=== PATIENT | female | born 1985 | race Caucasian/White ===

== ENCOUNTER 2016-09-12 10:39 | Emergency (ER) | payer MEDICAID ==
[2016-09-12 11:02] VITALS: BP 113/71
[2016-09-12] MEDS ORDERED: IPRATROPIUM/ALBUTEROL 0.5-2.5 MG/3 ML AMPUL NEB ONE (11:40)
[2016-09-12] MEDS ORDERED: LIDOCAINE 5% (700 MG) TRANSDERMAL ADH..PATCH TP ONE (11:41)
--- NOTE | 2016-09-12 11:43 | ER Document Report ---
HPI - HPI Patient complains to provider of: upper back pain Onset: Other - 2 weeks Quality of pain: Achy, Sharp Pain Level: 4 Context: Patient complains of upper thoracic back pain for the past 2 weeks. Patient denies any back injury, fever, cough, abdominal pain or chest pain. Patient denies any nausea, vomiting or diarrhea. Patient denies any urinary symptoms. Associated Symptoms: Other. denies: Chest pain, Chills, Nonproductive cough, Productive cough, Fever, Headache Exacerbated by: Denies Relieved by: Denies - Upper back pain Similar symptoms previously: No Recently seen / treated by doctor: No - ROS ROS below otherwise negative: Yes Systems Reviewed and Negative: Yes All other systems reviewed and negative - CONSTITUTIONAL Constitutional: DENIES: Fever, Chills - NEURO Neurology: DENIES: Headache, Weakness - CARDIOVASCULAR Cardiovascular: DENIES: Chest pain - RESPIRATORY Respiratory: DENIES: Trouble Breathing, Coughing - GASTROINTESTINAL Gastrointestinal: DENIES: Abdominal Pain, Nausea, Patient vomiting, Diarrhea - REPRODUCTIVE Reproductive: DENIES: : - MUSCULOSKELETAL Musculoskeletal: REPORTS: Back Pain. DENIES: Extremity pain, Neck Pain - DERM Skin Color: Normal Skin Problems: None Past Medical History - General Information source: Patient - Social History Smoking Status: Current Every Day Smoker - One pack per day Frequency of alcohol use: None Drug Abuse: None Occupation: none Family History: Reviewed & Not Pertinent Patient has suicidal ideation: No Patient has homicidal ideation: No Renal/ Medical History: Denies: Hx Peritoneal Dialysis Psychiatric Medical History: Reports: Hx Anxiety Past Surgical History: Reports: Hx Cholecystectomy - Immunizations Hx Diphtheria, Pertussis, Tetanus Vaccination: No - refused Vertical Provider Document - CONSTITUTIONAL Agree With Documented VS: Yes Exam Limitations: No Limitations General Appearance: WD/WN, No Apparent Distress - INFECTION CONTROL TRAVEL OUTSIDE OF THE [place] IN LAST 30 DAYS: No - HEENT HEENT: Atraumatic, Normal ENT Exam, Normocephalic - NECK Neck: Normal Inspection, Supple - RESPIRATORY Respiratory: No Respiratory Distress, Chest Non-Tender, Wheezing - Wheezing bilateral lower lobes O2 Sat by Pulse Oximetry: 100 - CARDIOVASCULAR Cardiovascular: Regular Rate, Regular Rhythm, No Murmur - GI/ABDOMEN Gastrointestinal: Abdomen Soft, Abdomen Non-Tender - BACK Back: Abnormal Inspection - Thoracic midline tenderness T4-C7 area with paraspinal tenderness. negative: CVA Tenderness-Right, CVA Tenderness-Left - MUSCULOSKELETAL/EXTREMETIES Musculoskeletal/Extremeties: CHELSEY MIKE - NEURO Level of Consciousness: Awake, Alert, Appropriate Motor/Sensory: No Motor Deficit - DERM Integumentary: Warm, Dry, No Rash Course - Re-evaluation Re-evalutation: 09/12/16 11:42 Patient refuses any steroid medication to help with her wheezing symptoms. Patient states that her left had lung cancer with a similar presentation to her symptoms and she is requesting a chest x-ray be performed today. 09/12/16 12:41 Patient with decreased wheezing bilaterally after treatment. Discussed planning care with patient, patient requesting to know what her pain medication prescription will be. Patient advised that no narcotic will be given as she currently takes benzodiazepines regularly 4 times a day to treat her anxiety symptoms. Patient advised she will be getting nonnarcotic pain medication. Patient states that none of these medications are going to work she has a high pain tolerance. Although patient has not taken any of these medications to treat her current pain symptoms at this time. Discussed worsening signs or symptoms that patient should return immediately for. Patient advised to see her primary doctor for follow-up. - Vital Signs Vital signs: Temp Pulse Resp BP Pulse Ox 98.7 F 76 16 113/71 100 09/12/16 11:02 09/12/16 11:01 09/12/16 11:01 09/12/16 11:01 09/12/16 11:01 - Diagnostic Test Radiology reviewed: Reports reviewed Discharge - Discharge Clinical Impression: Upper back pain, Wheezing Condition: Stable Disposition: HOME, SELF-CARE Instructions: Stop Smoking ([facility]) Additional Instructions: Return immediately for any new or worsening symptoms Followup with your primary care provider, call tomorrow to make a followup appointment Apply topical lidocaine patch to painful area [id number] as directed BACK PAIN: Three out of every four people will have an episode of disabling back pain during their lifetime. Most commonly the pain is due to straining of the muscles and ligaments in the low back. Usual treatment includes: (1) Rest on a firm surface. Avoid lying on your stomach. (2) Ice pack the painful area. After a few days, gentle heat may be used intermittently to relax the area, or ice packs can be continued. (3) Medication may be needed -- muscle relaxers and antiinflammatory medicines are commonly used. (4) As the back improves, exercises are prescribed to strengthen the back and abdominal muscles. Your doctor will advise you on the proper care for your back at each stage in your recovery. You may be better in a few days -- or healing may take several weeks. If new symptoms of a "herniated disc" (radiation of pain, numbness, or tingling down the back of the leg or weakness in the leg) occur, you should be re-examined. Further testing may be necessary. MUSCLE RELAXERS: Muscle relaxing medications are usually prescribed for acute muscle spasm or injury to the neck and back. They are often combined with antiinflammatory pain medication for increased relief. You may stop the muscle relaxer when the pain and stiffness have improved. Start the medication again if spasms recur. Muscle relaxers may cause drowsiness, especially with the first dose. Do not operate machinery or drive while under the effects of the medication. Most muscle relaxers last up to 24 hours. Do not combine the medication with alcohol. ICE PACKS: Apply ice packs frequently against the painful area. Many different schedules are recommended, such as "20 minutes on, 20 minutes off" or "one hour ice, two hours rest." If you need to work, you may need to go longer between ice treatments. You should plan to have the area ice packed AT LEAST one fourth of the time. The ice should be applied over the wrap, tape, or splint, or over a layer of cloth -- not directly against the skin. Some ice bags have a built-in cloth and can be put directly on the skin. WARM PACKS: After approximately two days, apply gentle heat (such as a heating pad or hot water bottle) for about 20 to 30 minutes about every two hours -- at least four times daily. Warmth and elevation will help you make a more rapid recovery , and will ease the pain considerably. Do not use HOT heat, and never apply heat for longer than 30 minutes. The continuous heat can invisibly damage skin and muscles -- even when no burn is seen on the surface. Damaged muscles can make you MORE sore. UPPER RESPIRATORY ILLNESS: You have a viral infection of the respiratory passages -- a "cold." This common infection causes nasal congestion, drainage, and often sore throat and cough. It is highly contagious. The disease usually lasts about 10 to 14 days. There is no "cure" for the viral infection -- it must run its course. If there is a complication, such as bacterial infection in the nose, sinuses, middle ear, or bronchial tubes, antibiotics may be required. The antibiotics won't affect the virus. Drink plenty of fluids. A humidifier may help. An expectorant medication or decongestant may make you more comfortable. Use acetaminophen or ibuprofen for fever or aches. See the doctor if fever persists over two days, if there is any significant worsening of your symptoms, or if you simply fail to improve as expected. BRONCHOSPASM: You have tightness in the bronchial tubes, called bronchospasm. This often occurs with bronchial infections. Allergies, inhaled chemicals, and polluted or cold air can also provoke bronchospasm. It's more likely in patients with asthma in the family. Emergency treatment of bronchospasm may include adrenaline shots or bronchodilator aerosol. You may feel lightheaded and have a rapid pulse for an hour or two. Rest and get plenty of fluids. At home, we'll treat you with a bronchodilator inhaler. Antibiotics and corticosteroids may be required for some patients. Until you recover, avoid chemical fumes, dusts, pollens, and exercising in very cold or dry air. If you smoke, stop now!! If you develop a fever, increased wheezing, chest pain, or severe shortness of breath, you should contact the doctor immediately. INHALED BRONCHODILATORS: You have received a treatment of and/or prescription for an inhaled bronchodilator -- a medication which stimulates the airways in the lung to dilate. This improves the flow of air in asthma, bronchitis, and emphysema. These medicines have some similarity to adrenaline, and can cause similar side effects: shakiness, racing heart, and a sense of nervousness. These side effects decrease with time. Contact your doctor if these side effects are severe. Do not over-use the medicine. Too-frequent use of the inhaler may make it ineffective. Call your doctor if the inhaler is not controlling your symptoms at the prescribed doses. USE OF ACETAMINOPHEN (Tylenol): Acetaminophen may be taken for pain relief or fever control. It's much safer than aspirin, offering a wider range of "safe" dosages. It is safe during . Some brand names are Tylenol, Panadol, Datril, Anacin 3, Tempra, and Liquiprin. Acetaminophen can be repeated every four hours. The following are maximum recommended dosages: >89 pounds or adults 650 mg to 900 mg Acetaminophen can be repeated every four hours. Maximum dose not to exceed 4000 mg a day. SMOKING: If you smoke, you should stop smoking. The tar and chemicals in cigarette smoke are harmful. Smoking has been shown to cause: emphysema chronic bronchitis lung cancer mouth and throat cancer stomach and pancreas cancer premature aging defects In addition, smoking increases ear and lung infections in children of smokers. FOLLOW-UP CARE: If you have been referred to a physician for follow-up care, call the physician s office for an appointment as you were instructed or within the next two days. If you experience worsening or a significant change in your symptoms, notify the physician immediately or return to the Emergency Department at any time for re-evaluation. Prescriptions: Albuterol Sulfate [Ventolin Hfa] 2 puff IH Q4HP PRN #17 gm PRN Reason: Cyclobenzaprine HCl [Flexeril 10 Mg Tablet] 10 mg PO TID #15 tablet Naproxen [Naprosyn 250 Nmg Tablet] 1 tab PO BID #14 tablet Referrals: SHANTEL HER PA-C [Primary Care Provider] - 09/15/16
== END 2016-09-12 12:55 | disposition home or self-care (01) ==
LOC: ER 10:39
DX: M54.6 Pain in thoracic spine (principal); R06.2 Wheezing; F17.210 Nicotine dependence, cigarettes, uncomplicated; Z90.49 Acquired absence of other specified parts of digestive tract; Z85.118 Personal history of other malignant neoplasm of bronchus and lung
CPT/HCPCS: 94640; 99283; 71020; J3490; J7620

== ENCOUNTER 2016-11-22 15:22 | Emergency (ER) | payer MEDICAID ==
[2016-11-22] MEDS ORDERED: KETOROLAC TROMETHAMINE 60 MG/2 ML SDV IM ONE (16:32)
--- NOTE | 2016-11-22 16:35 | ER Document Report ---
ED Medical Screen (RME) - General Chief Complaint: Abdominal Pain Stated Complaint: ABDOMINAL PAIN Time Seen by Provider: 11/22/16 16:32 Mode of Arrival: Ambulatory Information source: Patient TRAVEL OUTSIDE OF THE [place] IN LAST 30 DAYS: No - HPI Patient complains to provider of: abdominal pain Onset: Yesterday - pt on second round of " pill" (took first dose yesterday) with crampy abdominal pain starting earlier today. Had small amount of vag bleeding. Was told she would have some discomfort but motrin not helping. - Related Data Allergies/Adverse Reactions: No Known Allergies Allergy (Verified 11/22/16 15:29) Past Medical History Renal/ Medical History: Denies: Hx Peritoneal Dialysis Psychiatric Medical History: Reports: Hx Anxiety, Hx Depression - & anxiety Past Surgical History: Reports: Hx Cholecystectomy - Immunizations Hx Diphtheria, Pertussis, Tetanus Vaccination: No - refused Physical Exam - Vital signs Vitals: Temp Pulse Resp BP Pulse Ox 98.9 F 80 16 127/89 H 99 11/22/16 15:29 11/22/16 15:29 11/22/16 15:29 11/22/16 15:29 11/22/16 15:29 Course - Vital Signs Vital signs: Temp Pulse Resp BP Pulse Ox 98.9 F 80 16 127/89 H 99 11/22/16 15:29 11/22/16 15:29 11/22/16 15:29 11/22/16 15:29 11/22/16 15:29
[2016-11-22 17:02] LABS: ABSOLUTE BASOPHILS # (AUTO) 0.1 10^3/uL (0.0-0.2); ABSOLUTE EOSINOPHILS # (AUTO) 0.4 10^3/uL (0.0-0.6); ABSOLUTE LYMPHOCYTES (AUTO) 3.3 10^3/uL (0.5-4.7); ABSOLUTE MONOCYTES (AUTO) 0.9 10^3/uL (0.1-1.4); ABSOLUTE NEUT (AUTO) 5.3 10^3/uL (1.7-8.2); BASOPHILS % (AUTO) 0.7 % (0-2); EOSINOPHILS % (AUTO) 3.5 % (0-6); HEMATOCRIT 38.2 % (36.0-47.0); HEMOGLOBIN 12.7 g/dL (12.0-15.5); HGB HCT DIFFERENCE -0.1; LYMPHOCYTES % (AUTO) 32.7 % (13-45); MEAN CORPUSCULAR HEMOGLOBIN 31.2 pg (27.0-33.4); MEAN CORPUSCULAR HGB CONC 33.3 g/dL (32.0-36.0); MEAN CORPUSCULAR VOLUME 94 fl (80-97); MONOCYTES % (AUTO) 9.4 % (3-13); RED BLOOD COUNT 4.07 10^6/uL (3.72-5.28); RED CELL DISTRIBUTION WIDTH 13.9 % (11.5-14.0); SEGMENTED NEUTROPHILS % (AUTO) 53.7 % (42-78)
[2016-11-22 17:04] LABS: APPEARANCE,URINE CLEAR; BILIRUBIN,URINE NEGATIVE (NEGATIVE); GLUCOSE, URINE NEGATIVE (NEGATIVE); KETONES,URINE NEGATIVE (NEGATIVE); LEUKOCYTE ESTERASE,URINE NEGATIVE (NEGATIVE); NITRITE,URINE NEGATIVE (NEGATIVE); PROTEIN,URINE NEGATIVE (NEGATIVE); URINE SPECIFIC GRAVITY 1.013; UROBILINOGEN,URINE NEGATIVE mg/dL (<2.0)
[2016-11-22] MEDS ORDERED: OXYCODONE HCL IR 5 MG TABLET PO ONE (17:06)
--- NOTE | 2016-11-22 17:09 | ER Document Report ---
ED General - General Chief Complaint: Abdominal Pain Stated Complaint: ABDOMINAL PAIN Time Seen by Provider: 11/22/16 16:32 Mode of Arrival: Ambulatory Notes: 31-year-old female patient presents with lower abdominal cramping and spotting. This began today. She took around 1 of the pill yesterday around 2 this morning. Does not know what it was called. She took Motrin at home but that did not help. She was ordered for labs and Toradol at triage but refused Toradol because she does not want a needle. She denies fever chills it is mildly nauseous. TRAVEL OUTSIDE OF THE [place] IN LAST 30 DAYS: No - Related Data Allergies/Adverse Reactions: No Known Allergies Allergy (Verified 11/22/16 15:29) Past Medical History - General Information source: Patient - Social History Smoking Status: Current Every Day Smoker Chew tobacco use (# tins/day): No Frequency of alcohol use: None Drug Abuse: None Family History: Reviewed & Not Pertinent Patient has suicidal ideation: No Patient has homicidal ideation: No Renal/ Medical History: Denies: Hx Peritoneal Dialysis Psychiatric Medical History: Reports: Hx Anxiety, Hx Depression - & anxiety Past Surgical History: Reports: Hx Cholecystectomy - Immunizations Hx Diphtheria, Pertussis, Tetanus Vaccination: No - refused Review of Systems - Review of Systems Notes: REVIEW OF SYSTEMS GEN: Denies fever, chills, weight loss ENT: Denies sore throat, nasal discharge, ear pain EYES: Denies blurry vision, eye pain, discharge CV: Denies chest pain, palpitations, edema RESP: Denies cough, shortness of breath, wheezing GI: Cramping vaginal spotting MSK: Denies joint pain/swelling, edema, SKIN: Denies rash, skin lesions LYMPH: Denies swollen glands/lymph nodes NEURO: Denies headache, focal weakness or numbness, dizziness PSYCH: Denies depression, suicidal or homicidal ideation PHYSICAL EXAMINATION General: No acute distress, well-nourished Head: Atraumatic, normocephalic ENT: Mouth normal, oropharynx moist, no exudates or tonsillar enlargement Eyes: Conjunctiva normal, pupils equal, lids normal Neck: No JVD, supple, no guarding CVS: Normal rate, regular rhythm, no murmurs Resp: No resp distress, equal and normal breath sounds bilaterally GI: Nondistended, soft, no tenderness to palpation, no rebound or guarding Ext: No deformities, no edema, normal range of motion in upper and lower ext Back: No CVA or midline TTP Skin: No rash, warm Lymphatic: No lymphadeopathy noted Neuro: Awake, alert. Face symmetric. GCS 15. Physical Exam - Vital signs Vitals: Temp Pulse Resp BP Pulse Ox 98.9 F 80 16 127/89 H 99 11/22/16 15:29 11/22/16 15:29 11/22/16 15:29 11/22/16 15:29 11/22/16 15:29 Course - Re-evaluation Re-evalutation: 11/22/16 17:07 Patient presents with lower abdominal cramping and spotting after taking 2 rounds of oral pill. Her vitals are normal she is nontender and looks nontoxic. Labs will not change my management. Pelvic exam would not change my management. She will follow-up Thursday with the clinic, in the meantime she will have oxycodone. - Vital Signs Vital signs: Temp Pulse Resp BP Pulse Ox 98.9 F 80 16 127/89 H 99 11/22/16 15:29 11/22/16 15:29 11/22/16 15:29 11/22/16 15:29 11/22/16 15:29 - Laboratory Result Diagrams: 11/22/16 16:40 11/22/16 16:40 Laboratory results interpreted by me: 11/22/16 16:35 Urine Blood MODERATE H Discharge - Discharge Clinical Impression: Medical , Abdominal cramping affecting Condition: Good Disposition: HOME, SELF-CARE Additional Instructions: Your symptoms are within the normal limits for your condition, having taken a medical tablet. He should follow-up with the clinic on Thursday to check your progress and I will give you some pain medicine in the meantime. If he develops fever or and are not able to eat please return to the ER. Please continue taking the ibuprofen even though you do not think it is working, because it does help the cramping. Prescriptions: Oxycodone HCl/Acetaminophen [Percocet 5-325 mg Tablet] 1 - 2 tab PO Q4H PRN #15 tablet PRN Reason:
[2016-11-22 17:15] LABS: ALANINE AMINOTRANSFERASE 24 U/L (9-52); ALBUMIN 4.2 g/dL (3.5-5.0); ALKALINE PHOSPHATASE 48 U/L (38-126); ANION GAP 10 (5-19); ASPARTATE AMINO TRANSFERASE 22 U/L (14-36); BILIRUBIN,DIRECT 0.3 mg/dL (0.0-0.4); BILIRUBIN,TOTAL 0.3 mg/dL (0.2-1.3); BLOOD UREA NITROGEN 6 mg/dL (7-20); CALCIUM 9.2 mg/dL (8.4-10.2); CARBON DIOXIDE 24 mmol/L (22-30); CHLORIDE 105 mmol/L (98-107); GLUCOSE 88 mg/dL (75-110); POTASSIUM 4.1 mmol/L (3.6-5.0); SODIUM 139.1 mmol/L (137-145); TOTAL PROTEIN 7.3 g/dL (6.3-8.2)
[2016-11-22] MEDS ORDERED: ONDANSETRON 4 MG TAB.RAPDIS PO ONE (17:15)
[2016-11-22 17:29] VITALS: BP 111/66
== END 2016-11-22 17:29 | disposition home or self-care (01) ==
LOC: ER 15:22
DX: O04.89 (Induced) termination of pregnancy with other complications (principal); R10.30 Lower abdominal pain, unspecified; F17.200 Nicotine dependence, unspecified, uncomplicated
CPT/HCPCS: 99284; 36415; 85025; 81025; 80053; 81001; S0119; J3490

== ENCOUNTER 2016-12-21 10:40 | Emergency (ER) | payer MEDICAID ==
--- NOTE | 2016-12-21 11:00 | ER Document Report ---
ED Medical Screen (RME) - General Chief Complaint: Pelvic Pain Stated Complaint: ABDOMINAL PAIN Time Seen by Provider: 12/21/16 10:57 Mode of Arrival: Ambulatory Information source: Patient - pt is who took pill last month -- had U/S done recently at OB's office to confirm that sac was present but fetus was not viable. She is having severe abdominal pain today. TRAVEL OUTSIDE OF THE [place] IN LAST 30 DAYS: No - Related Data Allergies/Adverse Reactions: No Known Allergies Allergy (Verified 11/22/16 15:29) Past Medical History - Social History Chew tobacco use (# tins/day): No Frequency of alcohol use: Social Drug Abuse: None Renal/ Medical History: Denies: Hx Peritoneal Dialysis Psychiatric Medical History: Reports: Hx Anxiety, Hx Depression - & anxiety Past Surgical History: Reports: Hx Cholecystectomy - Immunizations Hx Diphtheria, Pertussis, Tetanus Vaccination: No - refused Physical Exam - Vital signs Vitals: Temp Pulse Resp BP Pulse Ox 98.6 F 104 H 16 125/74 100 12/21/16 10:46 12/21/16 10:46 12/21/16 10:46 12/21/16 10:46 12/21/16 10:46 Course - Vital Signs Vital signs: Temp Pulse Resp BP Pulse Ox 98.6 F 104 H 16 125/74 100 12/21/16 10:46 12/21/16 10:46 12/21/16 10:46 12/21/16 10:46 12/21/16 10:46
[2016-12-21 11:26] LABS: ABSOLUTE EOSINOPHILS # (AUTO) 0.1 10^3/uL (0.0-0.6); ABSOLUTE LYMPHOCYTES (AUTO) 2.2 10^3/uL (0.5-4.7); ABSOLUTE MONOCYTES (AUTO) 0.5 10^3/uL (0.1-1.4); ABSOLUTE NEUT (AUTO) 4.6 10^3/uL (1.7-8.2); BASOPHILS % (AUTO) 0.6 % (0-2); EOSINOPHILS % (AUTO) 1.9 % (0-6); HEMATOCRIT 34.1 % (36.0-47.0); HEMOGLOBIN 11.7 g/dL (12.0-15.5); LYMPHOCYTES % (AUTO) 29.3 % (13-45); MEAN CORPUSCULAR HEMOGLOBIN 32.1 pg (27.0-33.4); MEAN CORPUSCULAR HGB CONC 34.4 g/dL (32.0-36.0); MEAN CORPUSCULAR VOLUME 93 fl (80-97); MONOCYTES % (AUTO) 7.1 % (3-13); RED BLOOD COUNT 3.66 10^6/uL (3.72-5.28); RED CELL DISTRIBUTION WIDTH 13.1 % (11.5-14.0); SEGMENTED NEUTROPHILS % (AUTO) 61.1 % (42-78); WHITE BLOOD COUNT 7.5 10^3/uL (4.0-10.5)
[2016-12-21 11:29] LABS: APPEARANCE,URINE CLEAR; BILIRUBIN,URINE NEGATIVE (NEGATIVE); GLUCOSE, URINE NEGATIVE (NEGATIVE); KETONES,URINE NEGATIVE (NEGATIVE); LEUKOCYTE ESTERASE,URINE NEGATIVE (NEGATIVE); NITRITE,URINE NEGATIVE (NEGATIVE); PROTEIN,URINE NEGATIVE (NEGATIVE); URINE SPECIFIC GRAVITY 1.002; UROBILINOGEN,URINE NEGATIVE mg/dL (<2.0)
[2016-12-21 11:43] LABS: ALANINE AMINOTRANSFERASE 17 U/L (9-52); ALBUMIN 4.3 g/dL (3.5-5.0); ALKALINE PHOSPHATASE 47 U/L (38-126); ANION GAP 13 (5-19); ASPARTATE AMINO TRANSFERASE 14 U/L (14-36); BILIRUBIN,DIRECT 0.4 mg/dL (0.0-0.4); BILIRUBIN,TOTAL 0.4 mg/dL (0.2-1.3); BLOOD UREA NITROGEN 6 mg/dL (7-20); CALCIUM 9.3 mg/dL (8.4-10.2); CARBON DIOXIDE 21 mmol/L (22-30); CHLORIDE 105 mmol/L (98-107); CREATININE RESULT 0.62 mg/dL (0.52-1.25); GLUCOSE 80 mg/dL (75-110); POTASSIUM 3.9 mmol/L (3.6-5.0); SODIUM 138.5 mmol/L (137-145); TOTAL PROTEIN 6.7 g/dL (6.3-8.2)
--- NOTE | 2016-12-21 12:06 | ER Document Report ---
ED General - General Chief Complaint: Pelvic Pain Stated Complaint: ABDOMINAL PAIN Time Seen by Provider: 12/21/16 10:57 Mode of Arrival: Ambulatory Information source: Patient Notes: 31-year-old female who was given pill approximately 1 month ago and then a second round of medications a few days later presents with complaints of abdominal cramping. Pt ntes she had u/s last week that noted the gestational sac without an IUP pt denies any fevers or chills, admits to nausea without vomiting. TRAVEL OUTSIDE OF THE [place] IN LAST 30 DAYS: No - HPI Onset: Other Onset/Duration: Persistent Quality of pain: Cramping Severity: Mild Pain Level: 1 Associated symptoms: Nausea, Vomiting Exacerbated by: Denies Relieved by: Denies Similar symptoms previously: Yes Recently seen / treated by doctor: Yes - Related Data Allergies/Adverse Reactions: No Known Allergies Allergy (Verified 11/22/16 15:29) Past Medical History - General Information source: Patient - pt is who took pill last month -- had U/S done recently at OB's office to confirm that sac was present but fetus was not viable. She is having severe abdominal pain today. - Social History Smoking Status: Current Every Day Smoker Cigarette use (# per day): Yes Chew tobacco use (# tins/day): No Smoking Education Provided: No Frequency of alcohol use: Social Drug Abuse: None Family History: Reviewed & Not Pertinent Renal/ Medical History: Denies: Hx Peritoneal Dialysis Psychiatric Medical History: Reports: Hx Anxiety, Hx Depression - & anxiety Past Surgical History: Reports: Hx Cholecystectomy - Immunizations Hx Diphtheria, Pertussis, Tetanus Vaccination: No - refused Review of Systems - Review of Systems Notes: REVIEW OF SYSTEMS: CONSTITUTIONAL : Denies fever, chills, or sweats. Denies recent illness. EENT: Denies eye, ear, throat, or mouth pain or symptoms. Denies nasal or sinus congestion or discharge. Denies throat, tongue, or mouth swelling or difficulty swallowing. CARDIOVASCULAR: Denies chest pain. Denies palpitations or racing or irregular heart beat. Denies ankle edema. RESPIRATORY: Denies cough, cold, or chest congestion. Denies shortness of breath, difficulty breathing, or wheezing. GASTROINTESTINAL: admits to abd cramping GENITOURINARY: Denies difficulty urinating, painful urination, burning, frequency, blood in urine, or discharge. FEMALE GENITOURINARY: Denies vaginal bleeding, heavy or abnormal periods, irregular periods. Denies vaginal discharge or odor. MUSCULOSKELETAL: Denies back or neck pain or stiffness. Denies joint pain or swelling. SKIN: Denies rash, lesions or sores. HEMATOLOGIC : Denies easy bruising or bleeding. LYMPHATIC: Denies swollen, enlarged glands. NEUROLOGICAL: Denies confusion or altered mental status. Denies passing out or loss of consciousness. Denies dizziness or lightheadedness. Denies headache. Denies weakness or paralysis or loss of use of either side. Denies problems with gait or speech. Denies sensory loss, numbness, or tingling. Denies seizures. PSYCHIATRIC: Denies anxiety or stress. Denies depression, suicidal ideation, or homicidal ideation. ALL OTHER SYSTEMS REVIEWED AND NEGATIVE. PHYSICAL EXAMINATION: GENERAL: Well-appearing, well-nourished and in no acute distress. HEAD: Atraumatic, normocephalic. EYES: Pupils equal round and reactive to light, extraocular movements intact, conjunctiva are normal. ENT: Nares patent, oropharynx clear without exudates. Moist mucous membranes. NECK: Normal range of motion, supple without lymphadenopathy LUNGS: Breath sounds clear to auscultation bilaterally and equal. No wheezes rales or rhonchi. HEART: Regular rate and rhythm without murmurs ABDOMEN: Soft, nontender, nondistended abdomen. No guarding, no rebound. No masses appreciated. Female : deferred Musculoskeletal: Normal range of motion, no pitting or edema. No cyanosis. NEUROLOGICAL: Cranial nerves grossly intact. Normal speech, normal gait. Normal sensory, motor exams PSYCH: Normal mood, normal affect. SKIN: Warm, Dry, normal turgor, no rashes or lesions noted. Dictation was performed using [employer] voice recognition software Physical Exam - Vital signs Vitals: Temp Pulse Resp BP Pulse Ox 98.6 F 104 H 16 125/74 100 12/21/16 10:46 12/21/16 10:46 12/21/16 10:46 12/21/16 10:46 12/21/16 10:46 Course - Re-evaluation Re-evalutation: 12/21/16 13:[address] Welch, explained quant and imaging results, he requests patient follow up in the office tomorrow 12/21/16 13:44 Ultrasound is consistent with patient's knowledge at the current situation, given that [employer] requests she be seen in the office I will discharge her at this time with the understanding that if she is having fevers or chills that she must return immediately for further evaluation and care at this time is no sign of infection, her abdomen soft nontender and symptoms have been ongoing now for 1 month. I have instructed patient to please follow-up in the office so that they may actually treat her with possible D&C After performing a Medical Screening Examination, I estimate there is LOW risk for ACUTE APPENDICITIS, BOWEL OBSTRUCTION, ACUTE CHOLECYSTITIS, PERFORATED DIVERTICULITIS, INCARCERATED HERNIA, PANCREATITIS, PELVIC INFLAMMATORY DISEASE, PERFORATED ULCER, ECTOPIC , or TUBO-OVARIAN ABSCESS, thus I consider the discharge disposition reasonable. Also, there is no evidence or peritonitis , sepsis, or toxicity. I have reevaluated this patient multiple times and no significant life threatening changes are noted. The patient and I have discussed the diagnosis and risks, and we agree with discharging home with close follow-up with the understanding that symptoms and presentations can change. We also discussed returning to the Emergency Department immediately if new or worsening symptoms occur. We have discussed the symptoms which are most concerning (e.g., bloody stool, fever, changing or worsening pain, vomiting) that necessitate immediate return. - Vital Signs Vital signs: Temp Pulse Resp BP Pulse Ox 98.4 F 84 16 103/63 99 12/21/16 14:20 12/21/16 14:20 12/21/16 14:20 12/21/16 14:20 12/21/16 14:20 - Laboratory Result Diagrams: 12/21/16 11:00 12/21/16 11:00 Laboratory results interpreted by me: 12/21/16 12/21/16 11:00 11:00 RBC 3.66 L Hgb 11.7 L Hct 34.1 L Carbon Dioxide 21 L BUN 6 L Beta HCG, Quant 70171.00 H - Diagnostic Test Radiology reviewed: Image reviewed, Reports reviewed - report given to reesenet Discharge - Discharge Clinical Impression: Incomplete miscarriage Abdominal pain Qualifiers: Abdominal location: generalized Qualified Code(s): R10.84 - Generalized abdominal pain Condition: Stable Disposition: HOME, SELF-CARE Instructions: Abdominal Pain ([facility]) Additional Instructions: Dr. Welch requests he be seen tomorrow return immediately if there is any other concerns Prescriptions: Promethazine HCl [Phenergan 25 mg Tablet] 25 - 50 mg PO Q4HP PRN #12 tablet PRN Reason: Hydrocodone/Acetaminophen [[place] 5-325 mg Tablet] 1 tab PO Q6 #10 tablet Referrals: [facility] [Provider Group] - Follow up tomorrow
[2016-12-21] MEDS ORDERED: OXYCODONE-ACETAMINOPHEN 5-325 MG TABLET PO ONE (12:37)
--- NOTE | 2016-12-21 13:31 | RADIOLOGY REPORT (SQ) ---
EXAM DESCRIPTION: U/S OB TRANSVAG W/DOPPLER COMPLETED DATE/TIME: 12/21/2016 1:13 pm REASON FOR STUDY: abdominal pain COMPARISON: None. TECHNIQUE: Transvaginal static and realtime grayscale images acquired of the pelvis. Additional jefry cted spectral and color Doppler images recorded. All images stored on PACs. [id number] LIMITATIONS: None. FINDINGS: UTERUS: No masses. No anomalies. GESTATIONAL SAC: Yes measures 6 weeks 1 day YOLK SAC: No POLE: No RIGHT ADNEXA: A heterogeneous area is identified in the right ovary measuring 2.3 x 2.2 x 1.7 cm in d iameters which may represent a corpus lutein cyst. No adnexal free fluid. LEFT ADNEXA: Normal ovary with normal vascular flow. No adnexal free fluid. No adnexal masses. FREE FLUID: None. OTHER: No other significant finding. IMPRESSION: POSSIBLE EARLY INTRAUTERINE . BHCG LEVEL APPROPRIATE FOR ENDOMETRIAL FINDINGS. CONSIDER F/U BHCG AND/OR ULTRASOUND FOR VERIFICATION AND TO EXCLUDE ECTOPIC . Trimester of : First - 0 to 13 weeks. TECHNICAL DOCUMENTATION: JOB ID: [id number] [employer]- All Rights Reserved
[2016-12-21 14:24] VITALS: BP 103/63
== END 2016-12-21 14:20 | disposition home or self-care (01) ==
LOC: ER 10:40
DX: O03.4 Incomplete spontaneous abortion without complication (principal); R10.84 Generalized abdominal pain; R11.2 Nausea with vomiting, unspecified; F17.210 Nicotine dependence, cigarettes, uncomplicated
CPT/HCPCS: 36415; 76817; 80053; 81001; 84702; 85025; 93976; 99284

== ENCOUNTER 2016-12-23 08:23 | Day surgery (SDC) | payer MEDICAID ==
[2016-12-23] MEDS ORDERED: LIDOCAINE 2% INJ-PF (20 MG/ML) 10 ML AMPUL ONE (09:22)
[2016-12-23] MEDS ORDERED: ONDANSETRON HCL INJ/PF 4 MG/2 ML SDV ONE (09:23)
[2016-12-23] MEDS ORDERED: MIDAZOLAM 2 MG/2 ML INJ ONE (09:23)
[2016-12-23] MEDS ORDERED: IBUPROFEN INJ 800 MG/8 ML VIAL IV ONE (09:23)
[2016-12-23] MEDS ORDERED: FENTANYL CITRATE INJ/PF 100 MCG/2 ML AMPUL ONE (09:23)
[2016-12-23] MEDS ORDERED: PROPOFOL INJ 200 MG/20 ML VIAL IV ONE (09:23)
[2016-12-23] MEDS ORDERED: DEXAMETHASONE SOD PHOSPHATE INJ 4 MG/1 ML VIAL ONE (09:23)
[2016-12-23] MEDS ORDERED: MEPERIDINE HCL/PF INJ 25 MG/1 ML DISP.SYRIN IV PRN (09:51)
[2016-12-23] MEDS ORDERED: FENTANYL CITRATE INJ/PF 100 MCG/2 ML AMPUL IV PRN ×3 (09:51)
[2016-12-23] MEDS ORDERED: PROMETHAZINE HCL INJ 25 MG/1 ML VIAL IV PRN ×2 (09:51)
[2016-12-23] MEDS ORDERED: OXYCODONE-ACETAMINOPHEN 5-325 MG TABLET PO PRN ×2 (09:51)
[2016-12-23] MEDS ORDERED: MORPHINE SULFATE 10 MG/ML INJ IV PRN (09:51)
[2016-12-23] MEDS ORDERED: DIPHENHYDRAMINE HCL 50 MG/ML VIAL IV PRN (09:51)
[2016-12-23] MEDS ORDERED: ONDANSETRON HCL INJ/PF 4 MG/2 ML SDV IV PRN (09:51)
--- NOTE | 2016-12-23 10:01 | Operative Report ---
Operative Report DATE OF SURGERY: 12/23/16 PREOPERATIVE DIAGNOSIS: Missed AB POSTOPERATIVE DIAGNOSIS: Same OPERATION: Suction D&C SURGEON: YESICA MCLAIN ANESTHESIA: LMAC TISSUE REMOVED OR ALTERED: Uterine content COMPLICATIONS: None ESTIMATED BLOOD LOSS: 50 cc INTRAOPERATIVE FINDINGS: Sounded to 8 cm PROCEDURE: Patient was taken back to the OR and placed in supine position. Anesthesia was induced and she was placed in dorsolithotomy position using Buddy stirrups. Her perineum and vagina were prepared and draped in sterile fashion. A weighted speculum was placed in the anterior lip cervix grasped with a tenaculum. Cervix was gently dilated. This allowed a size 10 suction curette to be placed and uterine contents were evacuated. General exploration with a sharp curette showed no retained products. All instruments were removed and she was placed back in supine position taken recovery room in stable condition.
[2016-12-23] MEDS ORDERED: OXYCODONE-ACETAMINOPHEN 5-325 MG TABLET ONE (10:44)
[2016-12-23 18:40] VITALS: BP 100/78
== END 2016-12-23 12:00 | disposition home or self-care (01) ==
LOC: OROUT 08:23
PROVIDERS: ATTEND Obstetrics & Gynecology
PROC: 10D17ZZ Extraction of Products of Conception, Retained, Via Natural or Artificial Opening (ICD-10-PCS; principal; 2016-12-23 10:00)
DX: O02.1 Missed abortion (principal); F17.210 Nicotine dependence, cigarettes, uncomplicated; Z79.899 Other long term (current) drug therapy
CPT/HCPCS: 86900; 86901; 36415; 86850; 88305 ×2; 59820; J2250; J1100; J3010; J2405; J2704; J3490; J1741; 1965

== ENCOUNTER 2016-12-26 10:30 | Emergency (ER) | payer MEDICAID ==
[2016-12-26] MEDS ORDERED: OXYCODONE-ACETAMINOPHEN 5-325 MG TABLET PO ONE (11:25)
--- NOTE | 2016-12-26 11:28 | ER Document Report ---
ED Medical Screen (RME) - General Chief Complaint: Abdominal Pain Stated Complaint: ABDOMINAL PAIN Time Seen by Provider: 12/26/16 11:25 Notes: Pt states she had a D&C by Dr. Wick on 12-23-16 for failed after taking pills. Pt states she only had mild vag bleeding after surgery. Bleeding stopped yesterday. c/o low abd pain and lower back pain that started yesterday. Called OB and they called in tramadol which is not helping. Feels lower abd cramping when she voids. No fever, no n/v. I have greeted and performed a rapid initial assessment of this patient. A comprehensive ED assessment and evaluation of the patient, analysis of test results and completion of the medical decision making process will be conducted by additional ED providers. TRAVEL OUTSIDE OF THE [place] IN LAST 30 DAYS: No - Related Data Allergies/Adverse Reactions: No Known Allergies Allergy (Verified 12/26/16 11:13) Past Medical History - Social History Chew tobacco use (# tins/day): No Frequency of alcohol use: Rare Drug Abuse: None - Past Medical History Cardiac Medical History: Denies: Hx Coronary Artery Disease, Hx Heart Attack, Hx Hypertension Pulmonary Medical History: Reports: Hx Pneumonia Denies: Hx Asthma, Hx Bronchitis, Hx COPD Neurological Medical History: Denies: Hx Cerebrovascular Accident, Hx Seizures Renal/ Medical History: Denies: Hx Peritoneal Dialysis Musculoskeltal Medical History: Denies Hx Arthritis Psychiatric Medical History: Reports: Hx Anxiety, Hx Depression - & anxiety Past Surgical History: Reports: Hx Cholecystectomy - Immunizations Hx Diphtheria, Pertussis, Tetanus Vaccination: No Physical Exam - Vital signs Vitals: Temp Pulse Resp BP Pulse Ox 98.7 F 120 H 16 103/66 98 12/26/16 10:38 12/26/16 10:38 12/26/16 10:38 12/26/16 10:38 12/26/16 10:38 Course - Vital Signs Vital signs: Temp Pulse Resp BP Pulse Ox 98.7 F 120 H 16 103/66 98 12/26/16 10:38 12/26/16 10:38 12/26/16 10:38 12/26/16 10:38 12/26/16 10:38 - Laboratory Result Diagrams: 12/26/16 11:42 12/26/16 11:42 Laboratory results interpreted by me: 12/26/16 12/26/16 10:35 11:42 RBC 3.48 L Hgb 10.9 L Hct 32.5 L Urine Blood SMALL H
[2016-12-26 11:44] LABS: APPEARANCE,URINE CLEAR; BILIRUBIN,URINE NEGATIVE (NEGATIVE); GLUCOSE, URINE NEGATIVE (NEGATIVE); KETONES,URINE NEGATIVE (NEGATIVE); LEUKOCYTE ESTERASE,URINE NEGATIVE (NEGATIVE); NITRITE,URINE NEGATIVE (NEGATIVE); PROTEIN,URINE NEGATIVE (NEGATIVE); URINE SPECIFIC GRAVITY 1.003; UROBILINOGEN,URINE NEGATIVE mg/dL (<2.0)
[2016-12-26 11:52] LABS: ABSOLUTE BASOPHILS # (AUTO) 0.1 10^3/uL (0.0-0.2); ABSOLUTE EOSINOPHILS # (AUTO) 0.1 10^3/uL (0.0-0.6); ABSOLUTE LYMPHOCYTES (AUTO) 1.9 10^3/uL (0.5-4.7); ABSOLUTE MONOCYTES (AUTO) 0.7 10^3/uL (0.1-1.4); ABSOLUTE NEUT (AUTO) 7.5 10^3/uL (1.7-8.2); BASOPHILS % (AUTO) 0.9 % (0-2); EOSINOPHILS % (AUTO) 1.3 % (0-6); HEMATOCRIT 32.5 % (36.0-47.0); HEMOGLOBIN 10.9 g/dL (12.0-15.5); HGB HCT DIFFERENCE 0.2; LYMPHOCYTES % (AUTO) 18.6 % (13-45); MEAN CORPUSCULAR HEMOGLOBIN 31.5 pg (27.0-33.4); MEAN CORPUSCULAR HGB CONC 33.6 g/dL (32.0-36.0); MEAN CORPUSCULAR VOLUME 94 fl (80-97); RED BLOOD COUNT 3.48 10^6/uL (3.72-5.28); RED CELL DISTRIBUTION WIDTH 13.2 % (11.5-14.0); SEGMENTED NEUTROPHILS % (AUTO) 72.2 % (42-78); WHITE BLOOD COUNT 10.4 10^3/uL (4.0-10.5)
[2016-12-26 12:18] LABS: ALANINE AMINOTRANSFERASE 24 U/L (9-52); ALBUMIN 4.4 g/dL (3.5-5.0); ALKALINE PHOSPHATASE 51 U/L (38-126); ANION GAP 9 (5-19); ASPARTATE AMINO TRANSFERASE 16 U/L (14-36); BILIRUBIN,DIRECT 0.4 mg/dL (0.0-0.4); BILIRUBIN,TOTAL 0.5 mg/dL (0.2-1.3); BLOOD UREA NITROGEN 6 mg/dL (7-20); CALCIUM 9.6 mg/dL (8.4-10.2); CARBON DIOXIDE 26 mmol/L (22-30); CHLORIDE 106 mmol/L (98-107); CREATININE RESULT 0.74 mg/dL (0.52-1.25); GLUCOSE 76 mg/dL (75-110); POTASSIUM 3.7 mmol/L (3.6-5.0); SODIUM 141.1 mmol/L (137-145); TOTAL PROTEIN 7.4 g/dL (6.3-8.2)
--- NOTE | 2016-12-26 15:05 | ER Document Report ---
ED GI/ - General Chief Complaint: Abdominal Pain Stated Complaint: ABDOMINAL PAIN Time Seen by Provider: 12/26/16 11:25 Notes: The patient is a 31-year-old female, , who had a D&C [address] Wick at [facility] for a failed with pills, presents with increasing lower abdominal pain and cramping that started today. She had vaginal bleeding that ended yesterday. She called her OB and was started on tramadol yesterday, but she said that this is not helping. She denies fevers, urinary symptoms, flank pain, vaginal discharge, diarrhea, constipation or headache. TRAVEL OUTSIDE OF THE [place] IN LAST 30 DAYS: No - Related Data Allergies/Adverse Reactions: No Known Allergies Allergy (Verified 12/26/16 11:13) Past Medical History - General Information source: Patient - Social History Smoking Status: Current Every Day Smoker Chew tobacco use (# tins/day): No Frequency of alcohol use: Rare Drug Abuse: None Family History: Reviewed & Not Pertinent - Past Medical History Cardiac Medical History: Denies: Hx Coronary Artery Disease, Hx Heart Attack, Hx Hypertension Pulmonary Medical History: Reports: Hx Pneumonia Denies: Hx Asthma, Hx Bronchitis, Hx COPD Neurological Medical History: Denies: Hx Cerebrovascular Accident, Hx Seizures Renal/ Medical History: Denies: Hx Peritoneal Dialysis Musculoskeltal Medical History: Denies Hx Arthritis Psychiatric Medical History: Reports: Hx Anxiety, Hx Depression - & anxiety Past Surgical History: Reports: Hx Cholecystectomy - Immunizations Hx Diphtheria, Pertussis, Tetanus Vaccination: No Review of Systems - Review of Systems Notes: REVIEW OF SYSTEMS: CONSTITUTIONAL: -fevers, -chills EENT: -eye pain, -difficulty swallowing, -nasal congestion CARDIOVASCULAR:-chest pain, -syncope. RESPIRATORY: -cough, -SOB GASTROINTESTINAL: +lower abdominal pain, -nausea, -vomiting, -diarrhea GENITOURINARY: -dysuria, -hematuria MUSCULOSKELETAL: -back pain, -neck pain SKIN: -rash or skin lesions. HEMATOLOGIC: -easy bruising or bleeding. LYMPHATIC: -swollen, enlarged glands. NEUROLOGICAL: -altered mental status or loss of consciousness, -headache, - neurologic symptoms PSYCHIATRIC: -anxiety, -depression. ALL OTHER SYSTEMS REVIEWED AND NEGATIVE. Physical Exam - Vital signs Vitals: Temp Pulse Resp BP Pulse Ox 98.7 F 120 H 16 103/66 98 08/18/17 10:38 12/26/16 10:38 12/26/16 10:38 12/26/16 10:38 12/26/16 10:38 - Notes Notes: PHYSICAL EXAMINATION: GENERAL: Well-appearing, well-nourished and in mild distress. HEAD: Atraumatic, normocephalic. EYES: Pupils equal round and reactive to light, extraocular movements intact, sclera anicteric, conjunctiva are normal. ENT: nares patent, oropharynx clear without exudates. Moist mucous membranes. NECK: Normal range of motion, supple without lymphadenopathy LUNGS: Breath sounds clear to auscultation bilaterally and equal. No wheezes rales or rhonchi. HEART: Tachycardic ABDOMEN: Soft, mild suprpaubic tenderness, normoactive bowel sounds. No guarding, no rebound. No masses appreciated. EXTREMITIES: Normal range of motion, no pitting or edema. No cyanosis. NEUROLOGICAL: Cranial nerves grossly intact. Normal speech, normal gait. Normal sensory and motor exams. PSYCH: Normal mood, normal affect. SKIN: Warm, Dry, normal turgor, no rashes or lesions noted. Course - Re-evaluation Re-evalutation: 12/26/16 17:17 US shows possible retained products or hematoma in the endometrial canal. Placed call to Dr. Bryan (OB hadoop application developer) and awaiting callback. She is in room with patient. 12/26/16 17:27 Pt's tachycardia resolved after treatment of pain. Spoke to Dr. Bryan and she recommends Doxycycline 100 mg bid x10 days for anti- inflammatory and possible infection, 600 mcg Cytotec [place] or vaginally tonight, a few Percocet for pain and 25 mg Vistaril to help with her anxiety. She will follow-up in the office on Thursday. Spoke to patient about this and she understands. Given strict return precautions. - Vital Signs Vital signs: Temp Pulse Resp BP Pulse Ox 98.7 F 86 16 108/58 L 99 12/26/16 16:36 12/26/16 16:36 12/26/16 16:36 12/26/16 16:36 12/26/16 16:36 - Laboratory Result Diagrams: 12/26/16 11:42 12/26/16 11:42 Laboratory results interpreted by me: 12/26/16 12/26/16 12/26/16 10:35 11:42 11:42 RBC 3.48 L Hgb 10.9 L Hct 32.5 L BUN 6 L Urine Blood SMALL H - Diagnostic Test Radiology reviewed: Image reviewed, Reports reviewed Radiology results interpreted by me: US Transvaginal: retained POC or hematoma in endometrial canal Discharge - Discharge Clinical Impression: Pelvic pain Condition: Stable Disposition: HOME, SELF-CARE Additional Instructions: Take the doxycycline as prescribed. Insert Cytotec into your vagina or rectum tonight, take Percocet and Motrin for pain and Vistaril for any anxiety. Follow -up with your OB on Thursday. Return to the ER if you have vaginal bleeding that does not stop or any other concerns. Prescriptions: Hydroxyzine Pamoate [Vistaril 25 mg Capsule] 25 mg PO DAILY #10 capsule Misoprostol [Cytotec 0.2 mg Tablet] 600 mcg VG ONCE PRN #1 unit PRN Reason: Oxycodone HCl/Acetaminophen [Percocet 5-325 mg Tablet] 1 - 2 tab PO Q4H PRN #15 tablet PRN Reason: Referrals: YESICA WICK MD [ACTIVE STAFF] - Follow up as needed NEL BRYAN MD [ACTIVE STAFF] - Follow up as needed
[2016-12-26] MEDS ORDERED: HYDROCODONE/ACETAMINOPHEN 5-325 MG TABLET PO ONE (15:30)
[2016-12-26] MEDS ORDERED: IBUPROFEN 600 MG TABLET PO ONE (15:30)
--- NOTE | 2016-12-26 16:48 | RADIOLOGY REPORT (SQ) ---
EXAM DESCRIPTION: U/S NON-OB PELVIS TV W/O DOP COMPLETED DATE/TIME: 12/26/2016 4:22 pm REASON FOR STUDY: pelvic pain s/p D C, retained products? COMPARISON: None. TECHNIQUE: Dynamic and static grayscale images acquired of the pelvis via transvaginal approach and recorded on PACS. Additional selected color Doppler and spectral images recorded. LIMITATIONS: None. FINDINGS: UTERUS: Contour normal. No mass. ENDOMETRIAL STRIPE: The endometrium is thickened and heterogeneous and measures 3.8 cm. CERVIX: Appears to be closed. RIGHT OVARY: No abnormal masses. RIGHT OVARY DOPPLER: Normal arterial vascular flow without evidence for torsion. LEFT OVARY: No abnormal masses. LEFT OVARY DOPPLER: Normal arterial vascular flow without evidence for torsion. FREE FLUID: None noted. OTHER: No other significant finding. MEASUREMENTS: UTERUS: 10.5 x 7.3 x 5.8 cm ENDOMETRIAL STRIPE: 3.8 cm RIGHT OVARY: 3.4 x 2.7 x 1.8 cm LEFT OVARY: 3.8 x 1.9 x 2.2 cm IMPRESSION: Retained products of conception versus hematoma in the endometrial canal. TECHNICAL DOCUMENTATION: JOB ID: [id number] [employer]- All Rights Reserved
[2016-12-26 17:43] VITALS: BP 114/68
== END 2016-12-26 17:42 | disposition home or self-care (01) ==
LOC: ER 10:30
DX: R10.2 Pelvic and perineal pain (principal); R10.30 Lower abdominal pain, unspecified; F17.200 Nicotine dependence, unspecified, uncomplicated
CPT/HCPCS: 99284; 36415; 84702; 85025; 80053; 81001; 76830; J3490

== ENCOUNTER 2017-01-16 08:36 | Day surgery (SDC) | payer MEDICAID ==
[~2017-01-16 08:36] MED LIST: ACETAMINOPHEN 100 ML IV ONE; FENTANYL CITRATE INJ/PF 100 MCG/2 ML AMPUL ONE; MIDAZOLAM 2 MG/2 ML INJ ONE; MORPHINE SULFATE 10 MG/ML INJ ONE; PROPOFOL INJ 200 MG/20 ML VIAL IV ONE
[2017-01-16] MEDS ORDERED: DOXYCYCLINE HYCLATE 100 MG in DEXTROSE 5%-WATER 250 ML IV PRN (08:49)
[2017-01-16 09:05] LABS: HEMATOCRIT 33.8 % (36.0-47.0); HEMOGLOBIN 11.9 g/dL (12.0-15.5); HGB HCT DIFFERENCE 1.9; MEAN CORPUSCULAR HEMOGLOBIN 32.9 pg (27.0-33.4); MEAN CORPUSCULAR HGB CONC 35.3 g/dL (32.0-36.0); MEAN CORPUSCULAR VOLUME 93 fl (80-97); RED BLOOD COUNT 3.63 10^6/uL (3.72-5.28); RED CELL DISTRIBUTION WIDTH 13.8 % (11.5-14.0); WHITE BLOOD COUNT 8.6 10^3/uL (4.0-10.5)
[2017-01-16 09:30] LABS: APPEARANCE,URINE CLOUDY; BILIRUBIN,URINE SMALL (NEGATIVE); GLUCOSE, URINE NEGATIVE (NEGATIVE); KETONES,URINE TRACE mg/dL (NEGATIVE); LEUKOCYTE ESTERASE,URINE TRACE (NEGATIVE); NITRITE,URINE NEGATIVE (NEGATIVE); PROTEIN,URINE 30 mg/dL (NEGATIVE); URINE SPECIFIC GRAVITY 1.031
[2017-01-16] MEDS ORDERED: ALBUTEROL SULFATE 0.083% NEB 2.5 MG/3 ML AMPUL NEB ONE (10:13)
--- NOTE | 2017-01-16 11:56 | Operative Report ---
Operative Report DATE OF SURGERY: 01/16/17 PREOPERATIVE DIAGNOSIS: Possible retained products of conception POSTOPERATIVE DIAGNOSIS: Empty appearing uterus with some endometrial tissue on the posterior surface of the uterine cavity OPERATION: D&C hysteroscopy myosure SURGEON: YESICA MCLAIN ANESTHESIA: GA TISSUE REMOVED OR ALTERED: Uterine contents COMPLICATIONS: None ESTIMATED BLOOD LOSS: Minimal INTRAOPERATIVE FINDINGS: Uterine cavity appears empty with some fluffy appearing endometrial tissue on the posterior surface of the uterine cavity PROCEDURE: The patient was taken to the OR and placed in supine position. General anesthesia was induced. She is placed in dorsolithotomy position using Buddy stirrups. Her perineum and vagina were prepared and draped in sterile fashion. Her bladder was drained with a red rubber catheter. A weighted speculum was placed in the vagina and the anterior lip cervix was grasped with a tenaculum. The uterus sounded to 10 cm before and after the case. The cervix was gently dilated and hysteroscope inserted. The uterine cavity looked empty. There was fluffy appearing endometrial tissue on the posterior surface of the uterus. A sharp curettage was done to remove this tissue. Repeat examination showed most of this tissue was removed there was a little bit left at approximately 4 to 5: 00 on the posterior surface of the uterus and the myosure device was inserted to remove this tissue. There was no re there was no other retained retained tissue in the uterus on repeat examination. Bleeding was minimal. All instruments were removed. She is placed back in supine position taken recovery room in stable condition.
[2017-01-16] MEDS ORDERED: FENTANYL CITRATE INJ/PF 100 MCG/2 ML AMPUL IV PRN ×3 (12:01)
[2017-01-16] MEDS ORDERED: PROMETHAZINE HCL INJ 25 MG/1 ML VIAL IV PRN ×2 (12:01)
[2017-01-16] MEDS ORDERED: OXYCODONE-ACETAMINOPHEN 5-325 MG TABLET PO PRN ×4 (12:01→12:34)
[2017-01-16] MEDS ORDERED: MEPERIDINE HCL/PF INJ 25 MG/1 ML DISP.SYRIN IV PRN (12:01)
[2017-01-16] MEDS ORDERED: MORPHINE SULFATE 10 MG/ML INJ IV PRN (12:01)
[2017-01-16] MEDS ORDERED: DIPHENHYDRAMINE HCL 50 MG/ML VIAL IV PRN (12:01)
[2017-01-16] MEDS: FENTANYL CITRATE INJ/PF 100 MCG/2 ML AMPUL ONE ×2 (12:05→12:10)
[2017-01-16] MEDS ORDERED: RINGERS SOLUTION,LACTATED 1,000 ML IV PRN (12:32)
[2017-01-16] MEDS ORDERED: IBUPROFEN 800 MG TABLET PO PRN (12:33)
[2017-01-16 14:07] VITALS: BP 108/74
[2017-01-16] MEDS ORDERED: SUCCINYLCHOLINE CHLORIDE INJ 200 MG/10 ML VIAL ONE (14:09)
[2017-01-16] MEDS ORDERED: ONDANSETRON HCL INJ/PF 4 MG/2 ML SDV ONE (14:09)
[2017-01-16] MEDS ORDERED: KETOROLAC TROMETHAMINE 60 MG/2 ML SDV ONE (14:09)
[2017-01-16] MEDS ORDERED: DEXAMETHASONE SOD PHOSPHATE INJ 4 MG/1 ML VIAL ONE (14:09)
== END 2017-01-16 14:05 | disposition home or self-care (01) ==
LOC: OROUT 08:36
PROVIDERS: ATTEND Obstetrics & Gynecology
PROC: 0UDB8ZX Extraction of Endometrium, Via Natural or Artificial Opening Endoscopic, Diagnostic (ICD-10-PCS; principal; 2017-01-16 11:00)
DX: O02.1 Missed abortion (principal); F17.210 Nicotine dependence, cigarettes, uncomplicated; F41.9 Anxiety disorder, unspecified; F32.9 Major depressive disorder, single episode, unspecified; Z79.899 Other long term (current) drug therapy
CPT/HCPCS: 36415; 84702; 84703; 85027; 81001; 88305 ×2; 58558; J2250; J1100; J3490; J1885; J3010; J0330; J2405; J7060; J2704; J0131; 952; J2270

== ENCOUNTER 2017-02-03 13:23 | Emergency (ER) | payer MEDICAID ==
[2017-02-03] MEDS ORDERED: OXYCODONE-ACETAMINOPHEN 5-325 MG TABLET PO ONE (14:38)
[2017-02-03 14:46] LABS: ABSOLUTE BASOPHILS # (AUTO) 0.1 10^3/uL (0.0-0.2); ABSOLUTE EOSINOPHILS # (AUTO) 0.1 10^3/uL (0.0-0.6); ABSOLUTE LYMPHOCYTES (AUTO) 2.4 10^3/uL (0.5-4.7); ABSOLUTE MONOCYTES (AUTO) 0.4 10^3/uL (0.1-1.4); ABSOLUTE NEUT (AUTO) 4.6 10^3/uL (1.7-8.2); BASOPHILS % (AUTO) 0.9 % (0-2); EOSINOPHILS % (AUTO) 1.2 % (0-6); HEMATOCRIT 38.3 % (36.0-47.0); HEMOGLOBIN 13.6 g/dL (12.0-15.5); HGB HCT DIFFERENCE 2.5; MEAN CORPUSCULAR HEMOGLOBIN 33.2 pg (27.0-33.4); MEAN CORPUSCULAR HGB CONC 35.4 g/dL (32.0-36.0); MEAN CORPUSCULAR VOLUME 94 fl (80-97); MONOCYTES % (AUTO) 5.2 % (3-13); RED CELL DISTRIBUTION WIDTH 14.4 % (11.5-14.0); SEGMENTED NEUTROPHILS % (AUTO) 60.7 % (42-78); WHITE BLOOD COUNT 7.5 10^3/uL (4.0-10.5)
[2017-02-03 14:47] LABS: APPEARANCE,URINE CLEAR; BILIRUBIN,URINE NEGATIVE (NEGATIVE); GLUCOSE, URINE NEGATIVE (NEGATIVE); KETONES,URINE NEGATIVE (NEGATIVE); LEUKOCYTE ESTERASE,URINE NEGATIVE (NEGATIVE); NITRITE,URINE NEGATIVE (NEGATIVE); PROTEIN,URINE NEGATIVE (NEGATIVE); URINE SPECIFIC GRAVITY 1.004; UROBILINOGEN,URINE NEGATIVE mg/dL (<2.0)
[2017-02-03 15:03] LABS: ALANINE AMINOTRANSFERASE 25 U/L (9-52); ALBUMIN 4.9 g/dL (3.5-5.0); ALKALINE PHOSPHATASE 53 U/L (38-126); ANION GAP 13 (5-19); ASPARTATE AMINO TRANSFERASE 20 U/L (14-36); BILIRUBIN,DIRECT 0.4 mg/dL (0.0-0.4); BILIRUBIN,TOTAL 0.7 mg/dL (0.2-1.3); BLOOD UREA NITROGEN 11 mg/dL (7-20); CALCIUM 10.2 mg/dL (8.4-10.2); CARBON DIOXIDE 26 mmol/L (22-30); CHLORIDE 104 mmol/L (98-107); CREATININE RESULT 0.75 mg/dL (0.52-1.25); GLUCOSE 95 mg/dL (75-110); POTASSIUM 4.1 mmol/L (3.6-5.0); SODIUM 142.8 mmol/L (137-145); TOTAL PROTEIN 8.3 g/dL (6.3-8.2)
--- NOTE | 2017-02-03 16:35 | RADIOLOGY REPORT (SQ) ---
EXAM DESCRIPTION: U/S NON-OB PELVIS W/O DOP COMPLETED DATE/TIME: 02/03/2017 4:26 pm REASON FOR STUDY: pelvic pain COMPARISON: 12/26/2016. TECHNIQUE: Dynamic and static grayscale images acquired of the pelvis via transabdominal approach an d recorded on PACS. Additional selected color Doppler and spectral images recorded. LIMITATIONS: None. FINDINGS: UTERUS: Contour normal. No mass. ENDOMETRIAL STRIPE: No focal or generalized thickening. No masses. CERVIX: No nabothian cysts. RIGHT OVARY: No abnormal masses. RIGHT OVARY DOPPLER: Normal arterial vascular flow without evidence for torsion. LEFT OVARY: Simple cysts measuring 1.7 cm and 4.5 cm. LEFT OVARY DOPPLER: Normal arterial vascular flow without evidence for torsion. FREE FLUID: None noted. OTHER: No other significant finding. MEASUREMENTS: UTERUS: 4.6 x 5.5 x 9.3 cm. ENDOMETRIAL STRIPE: 2 mm. RIGHT OVARY: 1.9 x 2.5 x 3.9 cm. LEFT OVARY: 3.8 x 4.9 x 5.5 cm. IMPRESSION: SIMPLE CYSTS IN THE LEFT OVARY MEASURING 1.7 CM AND 4.5 CM. OTHERWISE UNREMARKABLE PELV IC ULTRASOUND BY TRANSABDOMINAL TECHNIQUE. TECHNICAL DOCUMENTATION: JOB ID: [id number] [employer]- All Rights Reserved
--- NOTE | 2017-02-03 17:06 | ER Document Report ---
ED General - General Chief Complaint: Abdominal Pain Stated Complaint: ABDOMINAL PAIN Time Seen by Provider: 02/03/17 14:27 Mode of Arrival: Ambulatory Information source: Patient Notes: Patient states that she is having suprapubic abdominal pain. She states she recently had a D&C and then had to have a repeat procedure for retained products. Last procedures approximately 2 weeks ago. She states she still having suprapubic cramping. It does radiate into her vaginal area. No vaginal discharge or bleeding. No fevers. No vomiting or diarrhea. Nothing makes the pain better or worse. It is constant and moderate. TRAVEL OUTSIDE OF THE [place] IN LAST 30 DAYS: No - Related Data Allergies/Adverse Reactions: No Known Allergies Allergy (Verified 01/16/17 09:09) Past Medical History - General Information source: Patient - Social History Smoking Status: Current Every Day Smoker Chew tobacco use (# tins/day): No Family History: Reviewed & Not Pertinent Patient has suicidal ideation: No Patient has homicidal ideation: No - Past Medical History Cardiac Medical History: Denies: Hx Coronary Artery Disease, Hx Heart Attack, Hx Hypertension Pulmonary Medical History: Reports: Hx Pneumonia Denies: Hx Asthma, Hx Bronchitis, Hx COPD Neurological Medical History: Denies: Hx Cerebrovascular Accident, Hx Seizures Renal/ Medical History: Denies: Hx Peritoneal Dialysis Musculoskeltal Medical History: Denies Hx Arthritis Psychiatric Medical History: Reports: Hx Anxiety, Hx Depression - & anxiety Past Surgical History: Reports: Hx Cholecystectomy - Immunizations Hx Diphtheria, Pertussis, Tetanus Vaccination: No Review of Systems - Review of Systems Constitutional: denies: Chills, Fever Cardiovascular: denies: Chest pain, Palpitations Respiratory: denies: Cough, Short of breath Gastrointestinal: Abdominal pain. denies: Diarrhea, Vomiting -: Yes All other systems reviewed and negative Physical Exam - Vital signs Vitals: Temp Pulse Resp BP Pulse Ox 98.6 F 93 20 129/81 H 100 02/03/17 13:43 02/03/17 13:43 02/03/17 13:43 02/03/17 13:43 02/03/17 13:43 Interpretation: Normal - General General appearance: Appears well, Alert - HEENT Head: Normocephalic, Atraumatic Eyes: Normal Pupils: PERRL - Respiratory Respiratory status: No respiratory distress Chest status: Nontender Breath sounds: Normal Chest palpation: Normal - Cardiovascular Rhythm: Regular Heart sounds: Normal auscultation Murmur: No - Abdominal Inspection: Normal Distension: No distension Bowel sounds: Normal Tenderness: Tender, Other - Patient has some moderate suprapubic tenderness to palpation. Organomegaly: No organomegaly - Back Back: Normal, Nontender - Extremities General upper extremity: Normal inspection, Nontender, Normal color, Normal ROM , Normal temperature General lower extremity: Normal inspection, Nontender, Normal color, Normal ROM , Normal temperature, Normal weight bearing. No: Marco A's sign - Neurological Neuro grossly intact: Yes Cognition: Normal Orientation: AAOx4 Merced Coma Scale Eye Opening: Spontaneous [place] Coma Scale Verbal: Oriented Qasim Coma Scale Motor: Obeys Commands Qasim Coma Scale Total: 15 Speech: Normal Motor strength normal: LUE, RUE, LLE, RLE Sensory: Normal - Psychological Associated symptoms: Normal affect, Normal mood - Skin Skin Temperature: Warm Skin Moisture: Dry Skin Color: Normal Course - Vital Signs Vital signs: Temp Pulse Resp BP Pulse Ox 98.6 F 93 20 129/81 H 100 02/03/17 13:43 02/03/17 13:43 02/03/17 13:43 02/03/17 13:43 02/03/17 13:43 - Laboratory Result Diagrams: 02/03/17 14:35 02/03/17 14:35 Laboratory results interpreted by me: 02/03/17 02/03/17 02/03/17 14:09 14:35 14:35 RDW 14.4 H Total Protein 8.3 H Urine Blood SMALL H - Diagnostic Test Radiology reviewed: Image reviewed, Reports reviewed - Ultrasound shows no evidence of retained products. Discharge - Discharge Clinical Impression: Pelvic pain Condition: Stable Disposition: HOME, SELF-CARE Instructions: Abdominal Pain ([facility]) Additional Instructions: Please follow-up with your STATE MANAGER as soon as possible. Prescriptions: Oxycodone HCl/Acetaminophen [Percocet 5-325 mg Tablet] 1 - 2 tab PO Q4H PRN #8 tablet PRN Reason:
[2017-02-03 17:18] VITALS: BP 121/80
== END 2017-02-03 17:22 | disposition home or self-care (01) ==
LOC: ER 13:23
DX: R10.2 Pelvic and perineal pain (principal); Z98.890 Other specified postprocedural states; F17.200 Nicotine dependence, unspecified, uncomplicated
CPT/HCPCS: 36415; 76856; 80053; 81001; 84702; 85025; 99284

== ENCOUNTER 2017-05-28 17:00 | Emergency (ER) | payer MEDICAID ==
--- NOTE | 2017-05-28 19:39 | ER Document Report ---
ED Medical Screen (RME) - General Chief Complaint: Abdominal Pain Stated Complaint: STOMACH PAIN Time Seen by Provider: 05/28/17 19:34 Mode of Arrival: Ambulatory Information source: Patient Notes: 32-year-old female presents with complaints of right lower quadrant abdominal pain suprapubic pain of 3 day duration. Patient notes she had an ovarian cyst which is noted on ultrasound a few months ago Patient denies any fevers or chills admits to mild nausea I have greeted and performed a rapid initial assessment of this patient. A comprehensive ED assessment and evaluation of the patient, analysis of test results and completion of the medical decision making process will be conducted by additional ED providers. PHYSICAL EXAMINATION: GENERAL: Well-appearing, well-nourished and in no acute distress. HEAD: Atraumatic, normocephalic. EYES: Pupils equal round extraocular movements intact, conjunctiva are normal. ENT: Nares patent NECK: Normal range of motion LUNGS: No respiratory distress Musculoskeletal: Normal range of motion NEUROLOGICAL: Normal speech, normal gait. PSYCH: Normal mood, normal affect. SKIN: Warm, Dry, normal turgor, no rashes or lesions noted. TRAVEL OUTSIDE OF THE [place] IN LAST 30 DAYS: No - Related Data Allergies/Adverse Reactions: No Known Allergies Allergy (Verified 01/16/17 09:09) Past Medical History - Social History Chew tobacco use (# tins/day): No Frequency of alcohol use: None Drug Abuse: None - Past Medical History Cardiac Medical History: Denies: Hx Coronary Artery Disease, Hx Heart Attack, Hx Hypertension Pulmonary Medical History: Reports: Hx Pneumonia Denies: Hx Asthma, Hx Bronchitis, Hx COPD Neurological Medical History: Denies: Hx Cerebrovascular Accident, Hx Seizures Renal/ Medical History: Denies: Hx Peritoneal Dialysis Musculoskeltal Medical History: Denies Hx Arthritis Psychiatric Medical History: Reports: Hx Anxiety, Hx Depression - & anxiety Past Surgical History: Reports: Hx Cholecystectomy - Immunizations Hx Diphtheria, Pertussis, Tetanus Vaccination: No Physical Exam - Vital signs Vitals: Temp Pulse Resp BP Pulse Ox 98.7 F 77 16 123/66 100 05/28/17 17:52 05/28/17 17:52 05/28/17 17:52 05/28/17 17:52 05/28/17 17:52 Course - Vital Signs Vital signs: Temp Pulse Resp BP Pulse Ox 98.7 F 77 16 123/66 100 05/28/17 17:52 05/28/17 17:52 05/28/17 17:52 05/28/17 17:52 05/28/17 17:52
[2017-05-28 20:19] LABS: ABSOLUTE BASOPHILS # (AUTO) 0.1 10^3/uL (0.0-0.2); ABSOLUTE EOSINOPHILS # (AUTO) 0.2 10^3/uL (0.0-0.6); ABSOLUTE LYMPHOCYTES (AUTO) 3.5 10^3/uL (0.5-4.7); ABSOLUTE MONOCYTES (AUTO) 0.7 10^3/uL (0.1-1.4); ABSOLUTE NEUT (AUTO) 5.5 10^3/uL (1.7-8.2); BASOPHILS % (AUTO) 0.6 % (0-2); EOSINOPHILS % (AUTO) 2.2 % (0-6); HEMATOCRIT 35.8 % (36.0-47.0); HEMOGLOBIN 12.2 g/dL (12.0-15.5); LYMPHOCYTES % (AUTO) 35.6 % (13-45); MEAN CORPUSCULAR HEMOGLOBIN 31.2 pg (27.0-33.4); MEAN CORPUSCULAR HGB CONC 34.1 g/dL (32.0-36.0); MEAN CORPUSCULAR VOLUME 92 fl (80-97); MONOCYTES % (AUTO) 6.6 % (3-13); PLATELET COUNT 242 10^3/uL (150-450); RED BLOOD COUNT 3.91 10^6/uL (3.72-5.28); RED CELL DISTRIBUTION WIDTH 14.2 % (11.5-14.0); TOTAL CELLS COUNTED % (AUTO) 100 %
[2017-05-28 20:28] LABS: APPEARANCE,URINE SLIGHTLY-CLOUDY; BILIRUBIN,URINE NEGATIVE (NEGATIVE); COLOR,URINE YELLOW; GLUCOSE, URINE NEGATIVE (NEGATIVE); KETONES,URINE NEGATIVE (NEGATIVE); LEUKOCYTE ESTERASE,URINE NEGATIVE (NEGATIVE); NITRITE,URINE NEGATIVE (NEGATIVE); PROTEIN,URINE NEGATIVE (NEGATIVE); UROBILINOGEN,URINE NEGATIVE mg/dL (<2.0)
[2017-05-28 20:37] LABS: ALANINE AMINOTRANSFERASE 21 U/L (9-52); ALBUMIN 4.4 g/dL (3.5-5.0); ALKALINE PHOSPHATASE 53 U/L (38-126); ANION GAP 9 (5-19); ASPARTATE AMINO TRANSFERASE 19 U/L (14-36); BILIRUBIN,DIRECT 0.3 mg/dL (0.0-0.4); BILIRUBIN,TOTAL 0.4 mg/dL (0.2-1.3); BLOOD UREA NITROGEN 7 mg/dL (7-20); CALCIUM 9.8 mg/dL (8.4-10.2); CARBON DIOXIDE 27 mmol/L (22-30); CHLORIDE 105 mmol/L (98-107); GLUCOSE 99 mg/dL (75-110); LIPASE 269.6 U/L (23-300); POTASSIUM 3.7 mmol/L (3.6-5.0); SODIUM 140.5 mmol/L (137-145)
[2017-05-28] MEDS ORDERED: MORPHINE SULFATE IR 15 MG TABLET PO ONE (21:34)
[2017-05-28] MEDS ORDERED: LIDOCAINE 5% (700 MG) TRANSDERMAL ADH..PATCH TP ONE (21:34)
[2017-05-28] MEDS ORDERED: KETOROLAC TROMETHAMINE 60 MG/2 ML SDV IM ONE (21:34)
--- NOTE | 2017-05-28 21:34 | ER Document Report ---
ED General - General Chief Complaint: Abdominal Pain Stated Complaint: STOMACH PAIN Time Seen by Provider: 05/28/17 19:34 Mode of Arrival: Ambulatory Notes: Patient is a 32-year-old female with a past medical history of a cholecystectomy who presents with 3 days of right lower quadrant abdominal pain. Patient describes this as a constant, intermittently worsening dull, aching pain to the right lower abdomen. Nothing improves or worsens the symptoms. She states this does feel somewhat similar to when she has had an ovarian cyst in the past. She denies any associated fever, vomiting, dysuria, vaginal bleeding, vaginal discharge, or diarrhea. She has not seen her primary doctor regarding today's concerns. Her symptoms have been unchanged since onset. TRAVEL OUTSIDE OF THE [place] IN LAST 30 DAYS: No - Related Data Allergies/Adverse Reactions: No Known Allergies Allergy (Verified 01/16/17 09:09) Past Medical History - General Information source: Patient - Social History Smoking Status: Current Every Day Smoker Chew tobacco use (# tins/day): No Frequency of alcohol use: None Drug Abuse: None Lives with: Family Family History: Reviewed & Not Pertinent Patient has suicidal ideation: No Patient has homicidal ideation: No - Past Medical History Cardiac Medical History: Denies: Hx Coronary Artery Disease, Hx Heart Attack, Hx Hypertension Pulmonary Medical History: Reports: Hx Pneumonia Denies: Hx Asthma, Hx Bronchitis, Hx COPD Neurological Medical History: Denies: Hx Cerebrovascular Accident, Hx Seizures Renal/ Medical History: Denies: Hx Peritoneal Dialysis Musculoskeltal Medical History: Denies Hx Arthritis Psychiatric Medical History: Reports: Hx Anxiety, Hx Depression - & anxiety Past Surgical History: Reports: Hx Cholecystectomy - Immunizations Hx Diphtheria, Pertussis, Tetanus Vaccination: No Review of Systems - Review of Systems Notes: Constitutional: Negative for fever. HENT: Negative for sore throat. Eyes: Negative for visual changes. Cardiovascular: Negative for chest pain. Respiratory: Negative for shortness of breath. Gastrointestinal: Positive for abdominal pain Genitourinary: Negative for dysuria. Musculoskeletal: Negative for back pain. Skin: Negative for rash. Neurological: Negative for headaches, weakness or numbness. 10 point ROS negative except as marked above and in HPI. Physical Exam - Vital signs Vitals: Temp Pulse Resp BP Pulse Ox 98.7 F 77 16 123/66 100 05/28/17 17:52 05/28/17 17:52 01/18/18 17:52 05/28/17 17:52 05/28/17 17:52 Interpretation: Normal Notes: PHYSICAL EXAMINATION: GENERAL: Well-appearing, well-nourished and in no acute distress. HEAD: Atraumatic, normocephalic. EYES: Pupils equal round and reactive to light, extraocular movements intact, sclera anicteric, conjunctiva are normal. ENT: nares patent, oropharynx clear without exudates. Moist mucous membranes. NECK: Normal range of motion, supple without lymphadenopathy LUNGS: Breath sounds clear to auscultation bilaterally and equal. No wheezes rales or rhonchi. HEART: Regular rate and rhythm without murmurs ABDOMEN: Soft, mild focal tenderness the right lower quadrant. No rebound or guarding. No otherwise localized areas of tenderness. EXTREMITIES: Normal range of motion, no pitting or edema. No cyanosis. NEUROLOGICAL: No focal neurological deficits. Moves all extremities spontaneously and on command. PSYCH: Normal mood, normal affect. SKIN: Warm, Dry, normal turgor, no rashes or lesions noted. Course - Re-evaluation Re-evalutation: 05/28/17 21:32 Patient presents with 3 days of right lower quadrant abdominal pain she is otherwise very well in appearance. On abdominal examination she has generalized right lower quadrant abdominal tenderness without any rebound or guarding. She does not have any peritoneal signs on history or exam. Vitals are within normal limits without fever tachycardia. No leukocytosis. Urinalysis is clear. Will obtain transvaginal ultrasound to evaluate for possible ovarian cyst. Alternative diagnostic considerations would certainly include appendicitis, mesenteric adenitis, less likely a regional colitis given history. 05/29/17 01:22 Transvaginal ultrasound was unremarkable. CT scan was performed given patient' s ongoing pain unremarkable transvaginal ultrasound showed a normal appendix. Patient's pain is improved on reassessment of the abdomen. At this time the exact etiology of her abdominal pain is uncertain but may be related to a possible ruptured ovarian cyst versus a mesenteric adenitis. I have discussed with the patient that she does not have exact diagnosis at this time and needs to return to the emergency room for any new or worsening symptoms. At this time will discharge with return precautions and follow-up recommendations. Verbal discharge instructions given a the bedside and opportunity for questions given. Medication warnings reviewed. Patient is in agreement with this plan and has verbalized understanding of return precautions and the need for primary care follow-up in the next 24-72 hours. - Vital Signs Vital signs: Temp Pulse Resp BP Pulse Ox 98.7 F 77 16 123/66 100 05/28/17 17:52 05/28/17 17:52 05/28/17 17:52 05/28/17 17:52 05/28/17 17:52 - Laboratory Result Diagrams: 05/28/17 20:07 05/28/17 20:07 Laboratory results interpreted by me: 05/28/17 20:07 Hct 35.8 L RDW 14.2 H - Diagnostic Test Radiology reviewed: Reports reviewed Discharge - Discharge Clinical Impression: Right lower quadrant abdominal pain Condition: Good Disposition: HOME, SELF-CARE Instructions: Observation for Appendicitis ([facility]) Additional Instructions: You have been seen in the Emergency Department (ED) for abdominal pain. Your evaluation did not identify a clear cause of your symptoms but was generally reassuring. Please follow up with your doctor as soon as possible regarding today's emergent visit and the symptoms that are bothering you. Return to the ED if your abdominal pain worsens or fails to improve, you develop bloody vomiting, bloody diarrhea, you are unable to tolerate fluids due to vomiting, fever greater than 101, or other symptoms that concern you.
--- NOTE | 2017-05-28 23:09 | RADIOLOGY REPORT (SQ) ---
EXAM DESCRIPTION: U/S NON OB PEL TV W/DOPPLER CLINICAL HISTORY: 32 years, Female, RLQ pain, hx cyst COMPARISON: 02/03/2017 TECHNIQUE: Transvaginal LIMITATIONS: None. FINDINGS: 8.7 cm uterus, 0.7 cm thick endometrial stripe, 2.4 cm cervical length, 3.7 cm right ovary, and 3.3 cm left ovary appear normal size, shape, echotexture, and vascularity. 2.0 cm cystic dominant follicle of the right ovary; no follow-up imaging recommended. Interval resolution of previously described left ovarian cysts, 02/03/2017. No free fluid. IMPRESSION: Normal pelvic sonogram. 2011 [employer]- All Rights Reserved
--- NOTE | 2017-05-29 01:04 | RADIOLOGY REPORT (SQ) ---
EXAM DESCRIPTION: CT ABD/PELVIS WITH IV ONLY CLINICAL HISTORY: 32 years Female, rlq pain, eval appy COMPARISON: 07/28/2015 TECHNIQUE: 54 mL Isovue-370 IV contrast. Coronal and sagittal reformat. This exam was performed according to our departmental dose-optimization program, which includes automated exposure control, adjustment of the mA and/or kV according to patient size and/or use of iterative reconstruction technique. FINDINGS: No acute findings. Minimal fluid in the right paracentral posterior pelvis. Normal appendix partially visualized; no evidence of appendicitis. Nonopacified bowel in the right paracentral pelvis decreases sensitivity and specificity. Cholecystectomy clips.Inferior thorax, liver, pancreas, spleen, adrenals, renal system, gastrointestinal tract, pelvic organs, lymphatics, vasculature, and musculoskeleton appear otherwise unremarkable. IMPRESSION: No acute findings.
[2017-05-29 01:33] VITALS: BP 109/73
== END 2017-05-29 01:33 | disposition home or self-care (01) ==
LOC: ER 17:00
DX: R10.31 Right lower quadrant pain (principal); Z90.49 Acquired absence of other specified parts of digestive tract; F17.200 Nicotine dependence, unspecified, uncomplicated
CPT/HCPCS: 99284; 96372; 36415; 83690; 85025; 81025; 80053; 81001; 76830; 93976; 74177; J1885; J3490

== ENCOUNTER 2017-06-11 19:15 | Emergency (ER) | payer MEDICAID ==
--- NOTE | 2017-06-11 20:00 | RADIOLOGY REPORT (SQ) ---
EXAM DESCRIPTION: ANKLE LEFT COMPLETE COMPLETED DATE/TIME: 06/11/2017 7:51 pm REASON FOR STUDY: trampoline COMPARISON: None. NUMBER OF VIEWS: Three views. TECHNIQUE: AP, lateral, and oblique radiographic images acquired of the left ankle. LIMITATIONS: None. FINDINGS: MINERALIZATION: Normal. BONES: Faint irregularity adjacent to the tip of the lateral malleolus. Bony structures otherwise in tact. No worrisome bone lesions. JOINTS: No effusions. SOFT TISSUES: Lateral soft tissue swelling. No foreign body. OTHER: No other significant finding. IMPRESSION: FAINT IRREGULARITY ADJACENT TO THE TIP OF THE LATERAL MALLEOLUS, POSSIBLY A TINY AVULSIO N INJURY. LATERAL SOFT TISSUE SWELLING. TECHNICAL DOCUMENTATION: JOB ID: [id number] [email or web address]- All Rights Reserved
[2017-06-11] MEDS ORDERED: HYDROCODONE/ACETAMINOPHEN 5-325 MG (6 TAB/ER DISP) PO PRN (21:27)
--- NOTE | 2017-06-11 21:41 | ER Document Report ---
ED Extremity Problem, Lower - General Chief Complaint: Ankle Injury Stated Complaint: ANKLE INJURY Time Seen by Provider: 06/11/17 21:15 Mode of Arrival: Ambulatory Information source: Patient Notes: 32-year-old female presented ED for complaint of pain and swelling to her ankle. Swelling and tenderness noted on exam. Patient would not bear weight on her ankle. She states she was jumping on a trampoline twisted her ankle and heard a snap and pop TRAVEL OUTSIDE OF THE [place] IN LAST 30 DAYS: No - HPI Patient complains to provider of: Injury, Pain, Swelling Location: Ankle - Left Occurred: Just prior to arrival Where: Home, Outdoors Onset/Duration: Sudden Quality of pain: Pressure, Sharp Severity: Moderate Pain Level: 3 Context: Twisted, Wearing shoes Recent injury: Yes Associated symptoms: Taney a crack, Taney a pop, Painful ambulation Exacerbated by: Hanging down, Movement, Walking Relieved by: Elevation, Ice, Rest - Related Data Allergies/Adverse Reactions: No Known Allergies Allergy (Verified 06/11/17 19:20) Past Medical History - General Information source: Patient - Social History Smoking Status: Current Every Day Smoker Cigarette use (# per day): Yes - Pack per day Smoking Education Provided: Yes - 4 minutes Frequency of alcohol use: Social - 1-2 times a week Drug Abuse: None Lives with: Family Family History: Arthritis, CAD, CVA, DM, Hyperlipidemia, Hypertension, Malignancy. denies: COPD, Thyroid Disfunction Patient has suicidal ideation: No Patient has homicidal ideation: No - Past Medical History Cardiac Medical History: Reports: None Pulmonary Medical History: Reports: Hx Pneumonia EENT Medical History: Reports: None Neurological Medical History: Reports: None Endocrine Medical History: Reports: None Renal/ Medical History: Reports: None Malignancy Medical History: Reports: None GI Medical History: Reports: None Musculoskeltal Medical History: Reports Hx Musculoskeletal Trauma Skin Medical History: Reports None Psychiatric Medical History: Reports: Hx Anxiety, Hx Depression - & anxiety Traumatic Medical History: Reports: Hx Fractures Infectious Medical History: Reports: None Past Surgical History: Reports: Hx Cholecystectomy - Immunizations Hx Diphtheria, Pertussis, Tetanus Vaccination: No Review of Systems - Review of Systems Constitutional: No symptoms reported EENT: No symptoms reported Cardiovascular: No symptoms reported Respiratory: No symptoms reported Gastrointestinal: No symptoms reported Genitourinary: No symptoms reported Female Genitourinary: No symptoms reported Musculoskeletal: Ankle swelling - Pain and swelling to the ankle Skin: No symptoms reported Hematologic/Lymphatic: No symptoms reported Neurological/Psychological: No symptoms reported -: Yes All other systems reviewed and negative Physical Exam - Vital signs Vitals: Temp Pulse Resp BP Pulse Ox 98.3 F 95 20 134/96 H 99 06/11/17 21:03 06/11/17 21:03 06/11/17 21:03 06/11/17 21:03 06/11/17 21:03 Interpretation: Normal - General General appearance: Appears well, Alert - HEENT Head: Normocephalic, Atraumatic Eyes: Normal Pupils: PERRL - Respiratory Respiratory status: No respiratory distress Chest status: Nontender Breath sounds: Normal Chest palpation: Normal - Cardiovascular Rhythm: Regular Heart sounds: Normal auscultation Murmur: No - Abdominal Inspection: Normal Distension: No distension Bowel sounds: Normal Tenderness: Nontender Organomegaly: No organomegaly - Back Back: Normal, Nontender - Extremities General upper extremity: Normal inspection, Nontender, Normal color, Normal ROM , Normal temperature General lower extremity: Normal temperature Ankle: Tender, Ecchymosis, Edema, Limited ROM, Unable to bear weight. No: Abrasion, Deformity, Positive Huang's test Foot: Tender - Neurological Neuro grossly intact: Yes Cognition: Normal Orientation: AAOx4 Qasim Coma Scale Eye Opening: Spontaneous Qas[place] Coma Scale Verbal: Oriented [place] Coma Scale Motor: Obeys Commands Qasim Coma Scale Total: 15 Speech: Normal Motor strength normal: LUE, RUE, LLE, RLE Sensory: Normal - Psychological Associated symptoms: Normal affect, Normal mood - Skin Skin Temperature: Warm Skin Moisture: Dry Skin Color: Normal, Ecchymosis Location of irregularity: Extremities - Ecchymosis swelling and tenderness to the left ankle Course - Re-evaluation Re-evalutation: 06/12/17 02:25 Patient was treated with [place] from her [place] dispense pack before her splint was applied due to the pain and discomfort of the ankle. Patient's x-ray showed an avulsion fracture of the lateral malleolus. Patient was placed in a posterior ankle splint and given crutches and instructed to follow-up with orthopedics. - Vital Signs Vital signs: Temp Pulse Resp BP Pulse Ox 98.3 F 82 18 129/78 H 97 06/11/17 21:03 06/11/17 22:14 06/11/17 22:14 06/11/17 22:14 06/11/17 22:14 - Diagnostic Test Radiology reviewed: Image reviewed, Reports reviewed Discharge - Discharge Clinical Impression: Avulsion fracture of lateral malleolus of left fibula Qualifiers: Encounter type: initial encounter Fracture type: closed Qualified Code(s): S82.62XA - Displaced fracture of lateral malleolus of left fibula, initial encounter for closed fracture Condition: Stable Disposition: HOME, SELF-CARE Additional Instructions: Avulsion Fracture of the Ankle There is a small chip fracture in your ankle. This fracture was caused by stretching the joint ligaments, which pulled off a small piece of bone. This injury is treated much the same as a severe sprain. At first, you should elevate, rest, and apply ice packs to the leg. Often , only an ankle brace or tape is necessary while the chip fracture heals. Sometimes a chip fracture of this type requires a cast or walking boot. The treatment plan may change, depending on how your ankle progresses. Chip fractures usually do not fuse back onto the bone, but rather scar down to the bone surface. You will most likely see this bone fragment on future x-rays. It's important that you follow the treatment program as outlined for now, then follow up for re-evaluation as scheduled. Call the doctor or return at once if pain or swelling becomes severe, or if you develop other unusual symptoms. SPLINT PRECAUTIONS: A splint has been placed. This will protect the area while healing begins. Your problem does NOT normally require a cast. It MUST, however, be held still! Keep the splint on ALL THE TIME until instructed to remove it by the doctor. As you begin to use the area, be careful. You shouldn't do anything which causes discomfort -- you may disturb the injury even with the splint in place. After the initial period of rest and elevation, if splint does not prevent pain when you move, come back. You may require placement of a different splint , or a cast. If there is unexpected severe pain, or numbness, discoloration, or swelling beyond the splint, you should return at once. If you feel that the splint has broken or become loose, come back. USE OF CRUTCHES: The doctor has recommended that you not bear weight at this time. You will need to use crutches. Adjust the crutches so the tops come to about two inches under the armpit while you are standing upright. Use your hands -- not your armpits -- to support your weight. To get into a chair, support yourself with one crutch on the injured side. Hold the chair with the other hand, then lower yourself while putting all your weight on the good leg. Going up stairs is `good leg up, step up, then bring up crutches and bad leg.' Down stairs is `bad leg and crutches down, then bring good leg down.' If you develop numbness or swelling in an arm or hand, you are using the crutches incorrectly. Return if you are having any problems with the crutches. ICE & ELEVATION: Apply ice packs frequently against the painful area. Many different schedules are recommended, such as "20 minutes on, 20 minutes off" or "one hour ice, two hours rest." If you need to work, you may need to go longer between ice treatments. You should plan to have the area ice packed AT LEAST one- fourth of the time. The ice should be applied over the wrap, tape, or splint, or over a layer of cloth -- not directly against the skin. Some ice bags have a built-in cloth and can be put directly on the skin. Your injured part should be elevated as much as possible over the next 48 hours. Try to keep the injury above the level of the heart. Avoid use of the injured area. Elevation and rest will decrease the swelling. USE OF [id number] IBUPROFEN: Ibuprofen (Advil, Nuprin, Medipren, Motrin IB) is a medication for fever and pain control. In addition, it has anti- inflammatory effects which may be beneficial, especially in the treatment of injuries. It's best to take ibuprofen with food. Persons with ulcer disease or allergy to aspirin should notify their physician of this before taking ibuprofen. Ibuprofen can be given every four to six hours, for a total of four doses daily. Age Pain or fever dose Antiinflammatory dose 6-8 yr 200 mg (1 tab) 200 mg (1 tab) 9-11 yr 200 mg (1 tab) 200-400 mg (1-2 tab) 11-14 yr 200-400 mg (1-2 tab) 400 mg (2 tab) 15-adult 400 mg (2 tab) 600 mg (3 tab) ORAL NARCOTIC MEDICATION: You have been given a [place] dispense pack for pain control. This medication is a narcotic. It's best taken with food, as nausea can result if taken on an empty stomach. Don't operate machinery or drive within six hours of taking this medication. Do not combine this medicine with alcohol, or with any medication which can cause sedation (such as cold tablets or sleeping pills) unless you get permission from the physician. Narcotics tend to cause constipation. If possible, drink plenty of fluids and eat a diet high in fiber and fruits. Please be aware that prescription narcotics also have the potential for abuse. People become addicted to these medications because of the general sense of wellbeing that they induce. This feeling along with a significant reduction in tension, anxiety, and aggression provides a stimulating seductive quality to these drugs. Once your pain is under control, we encourage you to discard your unused narcotics. FOLLOW-UP CARE: If you have been referred to a physician for follow-up care, call the physician s office for an appointment as you were instructed or within the next two days. If you experience worsening or a significant change in your symptoms, notify the physician immediately or return to the Emergency Department at any time for re-evaluation. Forms: Smoking Cessation Education, Elevated Blood Pressure [facility] [Provider Group] - Follow up as needed [facility] [Provider Group] - Follow up as needed
[2017-06-11 22:15] VITALS: BP 129/78
== END 2017-06-11 22:14 | disposition home or self-care (01) ==
LOC: ER 19:15
PROC: 2W3RX1Z Immobilization of Left Lower Leg using Splint (ICD-10-PCS; principal; 2017-06-11)
DX: S99.912A Unspecified injury of left ankle, initial encounter (principal); M25.572 Pain in left ankle and joints of left foot; M79.89 Other specified soft tissue disorders; X50.1XXA Overexertion from prolonged static or awkward postures, initial encounter; Y93.44 Activity, trampolining; F17.210 Nicotine dependence, cigarettes, uncomplicated
CPT/HCPCS: 99283; 99406

== ENCOUNTER 2017-07-03 09:16 | Emergency (ER) | payer MEDICAID ==
--- NOTE | 2017-07-03 09:35 | ER Document Report ---
ED Medical Screen (RME) - General Chief Complaint: Diarrhea Stated Complaint: BACK AND ABDOMINAL PAIN Time Seen by Provider: 07/03/17 09:33 Mode of Arrival: Ambulatory Information source: Patient TRAVEL OUTSIDE OF THE [place] IN LAST 30 DAYS: No - HPI Patient complains to provider of: diarrhea; abd pain Onset: Other - pt with 2 wk h/o diarrhea and lower abd pain - Related Data Allergies/Adverse Reactions: No Known Allergies Allergy (Verified 07/03/17 09:18) Past Medical History - Past Medical History Cardiac Medical History: Denies: Hx Coronary Artery Disease, Hx Heart Attack, Hx Hypertension Pulmonary Medical History: Reports: Hx Pneumonia Denies: Hx Asthma, Hx Bronchitis, Hx COPD Neurological Medical History: Denies: Hx Cerebrovascular Accident, Hx Seizures Renal/ Medical History: Denies: Hx Peritoneal Dialysis Musculoskeltal Medical History: Denies Hx Arthritis, Reports Hx Musculoskeletal Trauma Psychiatric Medical History: Reports: Hx Anxiety, Hx Depression - & anxiety Traumatic Medical History: Reports: Hx Fractures Past Surgical History: Reports: Hx Cholecystectomy - Immunizations Hx Diphtheria, Pertussis, Tetanus Vaccination: No Physical Exam - Vital signs Vitals: Temp Pulse Resp BP Pulse Ox 99.1 F 97 18 128/79 H 99 07/03/17 09:29 07/03/17 09:29 07/03/17 09:29 07/03/17 09:29 07/03/17 09:29 Course - Vital Signs Vital signs: Temp Pulse Resp BP Pulse Ox 99.1 F 97 18 128/79 H 99 07/03/17 09:29 07/03/17 09:29 07/03/17 09:29 07/03/17 09:29 07/03/17 09:29
--- NOTE | 2017-07-03 10:00 | ER Document Report ---
ED General - General Chief Complaint: Diarrhea Stated Complaint: BACK AND ABDOMINAL PAIN Time Seen by Provider: 07/03/17 09:33 Mode of Arrival: Ambulatory Notes: 32-year-old female to the emergency department chief complaint of left lower quadrant abdominal discomfort intermittent pain with diarrhea for 3 weeks. States that she was seen here 1 month ago for some lower abdominal pain. Had CT scan and workup done which was unremarkable. Has had diarrhea after she eats for the last 3 weeks. States that her mother had partial colon resection when she was 28 and thinks that she may be getting the same thing her mom has. Does not know what her mom had though. She thinks it may be her mother had diverticulitis. Denies any fevers, chills, sweats. Some nausea but no vomiting. Patient states that she had a Pap smear done a few weeks ago and was told that it was abnormal and will need to have a "biopsy" of her cervix. Her regular doctor is but has not seen a regular doctor for this diarrhea that she has had for 3 weeks. Denies any recent travel. Has not been drinking any potentially contaminated water. No other sick contacts at home. No travel outside the [place]. TRAVEL OUTSIDE OF THE [place] IN LAST 30 DAYS: No - HPI Onset: Other - 3 weeks ago Severity: Mild Pain Level: 1 Associated symptoms: Diarrhea - Related Data Allergies/Adverse Reactions: No Known Allergies Allergy (Verified 07/03/17 09:18) Past Medical History - General Information source: Patient - Social History Smoking Status: Current Every Day Smoker Cigarette use (# per day): Yes Chew tobacco use (# tins/day): No Frequency of alcohol use: Occasional Drug Abuse: None Lives with: Family Family History: Arthritis, CAD, CVA, DM, Hyperlipidemia, Hypertension, Malignancy. denies: COPD, Thyroid Disfunction Patient has suicidal ideation: No Patient has homicidal ideation: No - Past Medical History Cardiac Medical History: Denies: Hx Coronary Artery Disease, Hx Heart Attack, Hx Hypertension Pulmonary Medical History: Reports: Hx Pneumonia Denies: Hx Asthma, Hx Bronchitis, Hx COPD Neurological Medical History: Denies: Hx Cerebrovascular Accident, Hx Seizures Renal/ Medical History: Denies: Hx Peritoneal Dialysis Musculoskeltal Medical History: Denies Hx Arthritis, Reports Hx Musculoskeletal Trauma Psychiatric Medical History: Reports: Hx Anxiety, Hx Depression - & anxiety Traumatic Medical History: Reports: Hx Fractures Past Surgical History: Reports: Hx Cholecystectomy - Immunizations Hx Diphtheria, Pertussis, Tetanus Vaccination: No Review of Systems - Review of Systems Constitutional: denies: Fever, Malaise, Weakness EENT: denies: Blurred vision, Double vision, Ear pain, Throat pain, Throat swelling Cardiovascular: denies: Chest pain, Palpitations, Heart racing Respiratory: denies: Cough, Short of breath, Wheezing Gastrointestinal: Abdominal pain, Diarrhea, Nausea. denies: Vomiting Genitourinary: denies: Burning, Dysuria, Discharge Female Genitourinary: denies: , Vaginal discharge, Vaginal bleeding Musculoskeletal: denies: Back pain, Gout, Joint pain Skin: denies: Dryness, Lumps, Rash Hematologic/Lymphatic: denies: Anemia, Blood clots, Easy bleeding, Easy bruising Neurological/Psychological: denies: Confusion, Weakness, Numbness Physical Exam - Vital signs Vitals: Temp Pulse Resp BP Pulse Ox 99.1 F 97 18 128/79 H 99 07/03/17 09:29 07/03/17 09:29 07/03/17 09:29 07/03/17 09:29 07/03/17 09:29 Interpretation: Normal - General General appearance: Appears well, Alert - HEENT Head: Normocephalic, Atraumatic Eyes: Normal Pupils: PERRL - Respiratory Respiratory status: No respiratory distress Chest status: Nontender Breath sounds: Normal Chest palpation: Normal - Cardiovascular Rhythm: Regular Heart sounds: Normal auscultation Murmur: No - Abdominal Inspection: Normal Distension: No distension Bowel sounds: Normal Tenderness: Nontender Organomegaly: No organomegaly - Back Back: Normal, Nontender - Extremities General upper extremity: Normal inspection, Nontender, Normal color, Normal ROM , Normal temperature General lower extremity: Normal inspection, Nontender, Normal color, Normal ROM , Normal temperature, Normal weight bearing. No: Marco A's sign - Neurological Neuro grossly intact: Yes Cognition: Normal Orientation: AAOx4 [place] Coma Scale Eye Opening: Spontaneous [place] Coma Scale Verbal: Oriented [place] Coma Scale Motor: Obeys Commands [place] Coma Scale Total: 15 Speech: Normal Motor strength normal: LUE, RUE, LLE, RLE Sensory: Normal - Psychological Associated symptoms: Normal affect, Normal mood - Skin Skin Temperature: Warm Skin Moisture: Dry Skin Color: Normal Course - Re-evaluation Re-evalutation: 07/03/17 11:15 This is a very well-appearing female in no acute distress with normal vital signs, afebrile. States that she does not feel like she needs to have a bowel movement while she is here. States that she only poops when she eats. I will give her something to eat to see if we can collect some stool. Discussed the pros and cons of CT scan. Patient just had a CT scan performed 4 weeks ago which did not show any abnormal pathology. Unlikely she would have anything major going on at this time. More than likely patient needs colonoscopy. This is not something that I would do on her today. If labs are normal, urinalysis unremarkable, not . I will give her some treatment for diarrhea. And advised her to follow-up with recheck market news reporter to return for any worsening symptoms or concerns. 07/03/17 12:48 Laboratory 07/03/17 07/03/17 07/03/17 09:50 09:50 09:50 WBC 8.4 RBC 3.95 Hgb 12.3 Hct 36.5 MCV 92 MCH 31.2 MCHC 33.8 RDW 14.1 H Plt Count 231 Seg Neutrophils % 66.7 Lymphocytes % 24.5 Monocytes % 5.9 Eosinophils % 2.4 Basophils % 0.5 Absolute Neutrophils 5.6 Absolute Lymphocytes 2.1 Absolute Monocytes 0.5 Absolute Eosinophils 0.2 Absolute Basophils 0.0 Sodium 144.7 Potassium 4.0 Chloride 108 H Carbon Dioxide 25 Anion Gap 12 BUN 4 L Creatinine 0.76 Est GFR ( Amer) > 60 Est GFR (Non-Af Amer) > 60 Glucose 75 Calcium 9.3 Total Bilirubin 0.2 Direct Bilirubin 0.1 Neonat Total Bilirubin Not Reportable Neonat Direct Bilirubin Not Reportable Neonat Indirect Bili Not Reportable AST 18 ALT 16 Alkaline Phosphatase 50 Total Protein 6.8 Albumin 4.4 Urine Color STRAW Urine Appearance CLEAR Urine pH 8.0 Ur Specific [place] 1.003 Urine Protein NEGATIVE Urine Glucose (UA) NEGATIVE Urine Ketones NEGATIVE Urine Blood NEGATIVE Urine Nitrite NEGATIVE Urine Bilirubin NEGATIVE Urine Urobilinogen NEGATIVE Ur Leukocyte Esterase NEGATIVE Urine RBC (Auto) 0 Squamous Epi Cells Auto 1 Urine Mucus (Auto) RARE Urine Ascorbic Acid NEGATIVE Urine HCG, Qual NEGATIVE - Vital Signs Vital signs: Temp Pulse Resp BP Pulse Ox 99.1 F 97 18 128/79 H 99 07/03/17 09:29 07/03/17 09:29 07/03/17 09:29 07/03/17 09:29 07/03/17 09:29 - Laboratory Result Diagrams: 07/03/17 09:50 07/03/17 09:50 Laboratory results interpreted by me: 07/03/17 07/03/17 09:50 09:50 RDW 14.1 H Chloride 108 H BUN 4 L Discharge - Discharge Clinical Impression: Left lower quadrant abdominal pain of unknown etiology Condition: Good Disposition: HOME, SELF-CARE Instructions: Abdominal Pain ([facility]), Antispasmodics ([facility]), Diarrhea, Nonspecific ([facility]) Additional Instructions: If your symptoms get worse over the next 24 hours please return for repeat evaluation. Prescriptions: Dicyclomine HCl [Bentyl 10 mg Capsule] 1 cap PO TID #30 cap Forms: Follow-Up Outpatient Testing, Follow-Up Laboratory Testing Referrals: KHALIF PINEDA MD [Primary Care Provider] - Follow up as needed
--- NOTE | 2017-07-03 10:38 | RADIOLOGY REPORT (SQ) ---
EXAM DESCRIPTION: ACUTE ABDOMEN SERIES COMPLETED DATE/TIME: 07/03/2017 10:29 am REASON FOR STUDY: abd pain COMPARISON: Two-view chest 09/12/2016 CT abdomen and pelvis 05/28/2017 NUMBER OF VIEWS: Three views. TECHNIQUE: Frontal chest, supine abdomen and upright abdomen radiographic images acquired. LIMITATIONS: None. FINDINGS: CHEST: Lungs clear of infiltrates. Cardiac silhouette size, karis, bony structures are unr emarkable. FREE AIR: None. No abnormal gas collections. BOWEL GAS PATTERN: Nonobstructive pattern. No dilated loops or air fluid levels. CALCIFICATIONS: No suspicious calcifications. HARDWARE: Clips right upper quadrant post cholecystectomy. SOFT TISSUES: No gross mass or suggestion of organomegaly. BONES: No acute fracture. No worrisome bone lesions. OTHER: No other significant finding. IMPRESSION: NO RADIOGRAPHIC EVIDENCE FOR ACUTE ABDOMINAL DISEASE. TECHNICAL DOCUMENTATION: JOB ID: [id number] [employer]- All Rights Reserved
[2017-07-03] MEDS ORDERED: HYDROCODONE/ACETAMINOPHEN 5-325 MG TABLET PO ONE (10:52)
[2017-07-03] MEDS ORDERED: IBUPROFEN 600 MG TABLET PO ONE (10:52)
[2017-07-03 10:54] LABS: APPEARANCE,URINE CLEAR; BILIRUBIN,URINE NEGATIVE (NEGATIVE); COLOR,URINE STRAW; GLUCOSE, URINE NEGATIVE (NEGATIVE); KETONES,URINE NEGATIVE (NEGATIVE); LEUKOCYTE ESTERASE,URINE NEGATIVE (NEGATIVE); NITRITE,URINE NEGATIVE (NEGATIVE); PROTEIN,URINE NEGATIVE (NEGATIVE); URINE SPECIFIC GRAVITY 1.003; UROBILINOGEN,URINE NEGATIVE mg/dL (<2.0)
[2017-07-03 10:55] LABS: ABSOLUTE EOSINOPHILS # (AUTO) 0.2 10^3/uL (0.0-0.6); ABSOLUTE LYMPHOCYTES (AUTO) 2.1 10^3/uL (0.5-4.7); ABSOLUTE MONOCYTES (AUTO) 0.5 10^3/uL (0.1-1.4); ABSOLUTE NEUT (AUTO) 5.6 10^3/uL (1.7-8.2); BASOPHILS % (AUTO) 0.5 % (0-2); EOSINOPHILS % (AUTO) 2.4 % (0-6); HEMATOCRIT 36.5 % (36.0-47.0); HEMOGLOBIN 12.3 g/dL (12.0-15.5); LYMPHOCYTES % (AUTO) 24.5 % (13-45); MEAN CORPUSCULAR HEMOGLOBIN 31.2 pg (27.0-33.4); MEAN CORPUSCULAR HGB CONC 33.8 g/dL (32.0-36.0); MEAN CORPUSCULAR VOLUME 92 fl (80-97); MONOCYTES % (AUTO) 5.9 % (3-13); PLATELET COUNT 231 10^3/uL (150-450); RED BLOOD COUNT 3.95 10^6/uL (3.72-5.28); RED CELL DISTRIBUTION WIDTH 14.1 % (11.5-14.0); SEGMENTED NEUTROPHILS % (AUTO) 66.7 % (42-78); TOTAL CELLS COUNTED % (AUTO) 100 %; WHITE BLOOD COUNT 8.4 10^3/uL (4.0-10.5)
[2017-07-03 11:07] LABS: ALANINE AMINOTRANSFERASE 16 U/L (9-52); ALBUMIN 4.4 g/dL (3.5-5.0); ALKALINE PHOSPHATASE 50 U/L (38-126); ANION GAP 12 (5-19); ASPARTATE AMINO TRANSFERASE 18 U/L (14-36); BILIRUBIN,DIRECT 0.1 mg/dL (0.0-0.4); BILIRUBIN,TOTAL 0.2 mg/dL (0.2-1.3); BLOOD UREA NITROGEN 4 mg/dL (7-20); CALCIUM 9.3 mg/dL (8.4-10.2); CARBON DIOXIDE 25 mmol/L (22-30); CHLORIDE 108 mmol/L (98-107); GLUCOSE 75 mg/dL (75-110); SODIUM 144.7 mmol/L (137-145); TOTAL PROTEIN 6.8 g/dL (6.3-8.2)
[2017-07-03 13:16] VITALS: BP 106/68
== END 2017-07-03 13:15 | disposition home or self-care (01) ==
LOC: ER 09:16
DX: R10.32 Left lower quadrant pain (principal); R19.7 Diarrhea, unspecified; M54.9 Dorsalgia, unspecified; F17.210 Nicotine dependence, cigarettes, uncomplicated
CPT/HCPCS: 99284; 36415; 85025; 81025; 80053; 81001; 74022; J3490

== ENCOUNTER 2018-03-07 18:19 | Emergency (ER) | payer MEDICAID ==
[2018-03-07 18:24] VITALS: BP 122/71
[2018-03-07] MEDS ORDERED: ACETAMINOPHEN 325 MG TABLET PO ONE (19:38)
--- NOTE | 2018-03-07 19:38 | ER Document Report ---
HPI - HPI Pain Level: 3 Notes: Patient is a 32-year-old female who presents with chief complaint of right foot injury. Patient reports that her child's dropped a heavy power wheels battery onto the dorsal surface of her right foot. Patient is able to bear weight, reports that it is increased pain with weightbearing. Patient also reports she is 38 weeks . - REPRODUCTIVE Reproductive: DENIES: : - MUSCULOSKELETAL Musculoskeletal: REPORTS: Extremity pain - R foot Past Medical History - General Information source: Patient - Social History Smoking Status: Current Every Day Smoker Chew tobacco use (# tins/day): No Frequency of alcohol use: None Drug Abuse: None Family History: Arthritis, CAD, CVA, DM, Hyperlipidemia, Hypertension, Malignancy. denies: COPD, Thyroid Disfunction Patient has suicidal ideation: No Patient has homicidal ideation: No - Past Medical History Cardiac Medical History: Denies: Hx Coronary Artery Disease, Hx Heart Attack, Hx Hypertension Pulmonary Medical History: Reports: Hx Pneumonia Denies: Hx Asthma, Hx Bronchitis, Hx COPD Neurological Medical History: Denies: Hx Cerebrovascular Accident, Hx Seizures Renal/ Medical History: Denies: Hx Peritoneal Dialysis Musculoskeletal Medical History: Denies Hx Arthritis, Reports Hx Musculoskeletal Trauma Psychiatric Medical History: Reports: Hx Anxiety, Hx Depression - & anxiety Traumatic Medical History: Reports: Hx Fractures Past Surgical History: Reports: Hx Cholecystectomy - Immunizations Hx Diphtheria, Pertussis, Tetanus Vaccination: No Vertical Provider Document - CONSTITUTIONAL Notes: PHYSICAL EXAMINATION: GENERAL: Well-appearing, well-nourished and in no acute distress. HEAD: Atraumatic, normocephalic. EYES: Pupils equal round extraocular movements intact, conjunctiva are normal. ENT: Nares patent NECK: Normal range of motion LUNGS: No respiratory distress Musculoskeletal: Normal range of motion, small area of erythema/ecchymosis noted to dorsal surface of right foot, cap refill less than 3 seconds, normal motor and sensation distal to injury. NEUROLOGICAL: Normal speech, normal gait. PSYCH: Normal mood, normal affect. SKIN: Warm, Dry, normal turgor, no rashes or lesions noted. - INFECTION CONTROL TRAVEL OUTSIDE OF THE [place] IN LAST 30 DAYS: No Course - Re-evaluation Re-evalutation: X-rays negative for any acute findings to include fracture or dislocation. Patient will be given an Cristian wrap for comfort and instructed to take acetaminophen if she is and is unable to take any other pain medication. Patient is agreeable to this plan. - Vital Signs Vital signs: Temp Pulse Resp BP Pulse Ox 98.3 F 108 H 18 122/71 98 03/07/18 18:21 03/07/18 18:21 03/07/18 18:21 03/07/18 18:21 03/07/18 18:21 Discharge - Discharge Clinical Impression: Foot injury Qualifiers: Encounter type: initial encounter Laterality: right Qualified Code(s): S99.921A - Unspecified injury of right foot, initial encounter Contusion Qualifiers: Encounter type: initial encounter Contusion area: foot Laterality: right Qualified Code(s): S90.31XA - Contusion of right foot, initial encounter Condition: Stable Disposition: HOME, SELF-CARE Additional Instructions: Contusion Your injury has resulted in a contusion -- a crushing of the deep tissues. No injury to important structures was detected during the physician's exam. Contusions vary in the amount of pain they cause, and in the length of time required for healing. Typically, the area will become bruised, and will remain painful to touch for two or three weeks. However, most patients are back to working and playing within a few days. After the initial period of rest and cold-packs, your symptoms (together with the doctor's recommendations) will determine how rapidly you can get back to full activity. Usually this means "do what feels okay, but don't do things that hurt." If re-examination was recommended, it's important to follow up as instructed. Call the doctor or return any time if pain increases, if swelling becomes severe, if you develop numbness or weakness in an injured extremity, or if any other alarming symptoms occur. Ice & Elevation Apply ice packs frequently against the painful area. Many different schedules are recommended, such as "20 minutes on, 20 minutes off" or "one hour ice, two hours rest." If you need to work, you may need to go longer between ice treatments. You should plan to have the area ice packed AT LEAST one- fourth of the time. The ice should be applied over the wrap, tape, or splint, or over a layer of cloth -- not directly against the skin. Some ice bags have a built-in cloth and can be put directly on the skin. Your injured part should be elevated as much as possible over the next 48 hours. Try to keep the injury above the level of the heart. Avoid use of the injured area. Elevation and rest will decrease the swelling. Your x-ray was negative for any fracture or dislocation. Please take Tylenol every 4 hours for the pain. Ice and elevate the extremity. Wear the Cristian wrap for comfort. Referrals: KHALIF PINEDA MD [Primary Care Provider] - Follow up as needed
--- NOTE | 2018-03-07 19:45 | RADIOLOGY REPORT (SQ) ---
EXAM DESCRIPTION: FOOT RIGHT COMPLETE COMPLETED DATE/TIME: 03/07/2018 7:13 pm REASON FOR STUDY: INJURY . Battery fell on top of the right foot. The patient is 38 weeks pregnan t. COMPARISON: None. NUMBER OF VIEWS: Three views. TECHNIQUE: AP, lateral and oblique radiographic images acquired of the right foot. LIMITATIONS: None. FINDINGS: MINERALIZATION: Normal. BONES: No acute fracture or dislocation. SOFT TISSUES: No significant soft tissue swelling. No radiopaque foreign body. IMPRESSION: No radiographic evidence of acute fracture. TECHNICAL DOCUMENTATION: JOB ID: [id number] [employer]- All Rights Reserved Reading location - IP/workstation name: [email or web address]
== END 2018-03-07 19:56 | disposition home or self-care (01) ==
LOC: ER 18:19
DX: O9A.213 Injury, poisoning and certain other consequences of external causes complicating pregnancy, third trimester (principal); S90.31XA Contusion of right foot, initial encounter; W20.8XXA Other cause of strike by thrown, projected or falling object, initial encounter; O99.333 Smoking (tobacco) complicating pregnancy, third trimester; Z3A.38 38 weeks gestation of pregnancy
CPT/HCPCS: 99283; 73630; J3490

== ENCOUNTER 2018-03-14 04:39 | Outpatient (CLI) | payer MEDICAID ==
[2018-03-14 05:36] LABS: APPEARANCE,URINE CLEAR; BILIRUBIN,URINE NEGATIVE (NEGATIVE); COLOR,URINE YELLOW; GLUCOSE, URINE NEGATIVE (NEGATIVE); KETONES,URINE NEGATIVE (NEGATIVE); LEUKOCYTE ESTERASE,URINE NEGATIVE (NEGATIVE); NITRITE,URINE NEGATIVE (NEGATIVE); PROTEIN,URINE NEGATIVE (NEGATIVE); URINE SPECIFIC GRAVITY 1.006; UROBILINOGEN,URINE NEGATIVE mg/dL (<2.0)
[2018-03-14 05:53] LABS: URINE AMPHETAMINES SCREEN NEGATIVE; URINE BARBITURATES SCREEN NEGATIVE; URINE COCAINE SCREEN NEGATIVE; URINE MARIJUANA (THC) SCREEN NEGATIVE; URINE METHADONE SCREEN NEGATIVE; URINE PHENCYCLIDINE SCREEN NEGATIVE
[2018-03-14 05:55] LABS: URINE BENZODIAZEPINES SCREEN UNCONFIRMED POSITIVE
== END 2018-03-14 06:39 | disposition home or self-care (01) ==
LOC: LC 04:39
PROVIDERS: ATTEND Obstetrics & Gynecology
PROC: 4A1HXCZ Monitoring of Products of Conception, Cardiac Rate, External Approach (ICD-10-PCS; principal; 2018-03-14)
DX: Z34.93 Encounter for supervision of normal pregnancy, unspecified, third trimester (principal)
CPT/HCPCS: 59025; 80307; 81005

== ENCOUNTER 2018-03-14 18:08 | Inpatient (IN) | payer MEDICAID ==
[2018-03-14] MEDS ORDERED: RINGERS SOLUTION,LACTATED 1,000 ML IV PRN (18:19)
[2018-03-14 18:48] LABS: URINE AMPHETAMINES SCREEN NEGATIVE; URINE BARBITURATES SCREEN NEGATIVE; URINE COCAINE SCREEN NEGATIVE; URINE MARIJUANA (THC) SCREEN NEGATIVE; URINE METHADONE SCREEN NEGATIVE; URINE PHENCYCLIDINE SCREEN NEGATIVE
[2018-03-14] MEDS ORDERED: RINGERS SOLUTION,LACTATED 1,000 ML IV ONE (18:50)
[2018-03-14 18:52] LABS: URINE BENZODIAZEPINES SCREEN UNCONFIRMED POSITIVE
[2018-03-14 19:11] LABS: APPEARANCE,URINE CLOUDY; BILIRUBIN,URINE NEGATIVE (NEGATIVE); GLUCOSE, URINE NEGATIVE (NEGATIVE); KETONES,URINE NEGATIVE (NEGATIVE); LEUKOCYTE ESTERASE,URINE TRACE (NEGATIVE); NITRITE,URINE NEGATIVE (NEGATIVE); PROTEIN,URINE NEGATIVE (NEGATIVE); URINE SPECIFIC GRAVITY 1.024
[2018-03-14 19:12] LABS: COLOR,URINE DARK YELLOW
[2018-03-14 19:37] LABS: HEMATOCRIT 29.4 % (36.0-47.0); HEMOGLOBIN 10.6 g/dL (12.0-15.5); MEAN CORPUSCULAR HEMOGLOBIN 34.7 pg (27.0-33.4); MEAN CORPUSCULAR VOLUME 97 fl (80-97); PLATELET COUNT 228 10^3/uL (150-450); RED BLOOD COUNT 3.04 10^6/uL (3.72-5.28); RED CELL DISTRIBUTION WIDTH 13.4 % (11.5-14.0); WHITE BLOOD COUNT 13.8 10^3/uL (4.0-10.5)
[2018-03-14] MEDS ORDERED: EPHEDRINE SULFATE INJ 50 MG/1 ML AMPULE ONE (19:55)
[2018-03-14] MEDS ORDERED: FENTANYL/BUPIVACAINE/NS/PF 300 MCG/150 ML RTUINJ EPI ONE (19:55)
[2018-03-14] MEDS ORDERED: FENTANYL CITRATE INJ/PF 100 MCG/2 ML AMPUL ONE (19:55)
[2018-03-14] MEDS ORDERED: MISOPROSTOL 0.2 MG TABLET ONE (19:55)
[2018-03-14] MEDS ORDERED: OXYTOCIN/NORMAL SALINE 20 UNIT/1,000 ML RTUINJ ONE (19:56)
[2018-03-14] MEDS ORDERED: BUPIVACAINE HCL 0.5 % INJ/PF 30 ML SDV ONE (19:56)
[2018-03-14] MEDS ORDERED: LIDOCAINE 1% INJ-PF (10 MG/ML) 30 ML SDV ONE (19:56)
[2018-03-14 20:05] LABS: ABSOLUTE LYMPHOCYTES# (MANUAL) 1.8 10^3/uL (0.5-4.7); ABSOLUTE MONOCYTES # (MANUAL) 0.3 10^3/uL (0.1-1.4); ABSOLUTE NEUTROPHILS# (MANUAL) 11.3 10^3/uL (1.7-8.2); BASOPHILS % (MANUAL) 0 % (0-2); EOSINOPHILS % (MANUAL) 3 % (0-6); LYMPHOCYTES % (MANUAL) 13 % (13-45); MONOCYTES % (MANUAL) 2 % (3-13); SEGMENTED NEUTROPHILS % (MAN) 82 % (42-78); TOTAL CELLS COUNTED 100
[2018-03-14 20:06] LABS: OVALOCYTES SLIGHT; PLATELET COMMENT ADEQUATE; POIKILOCYTOSIS SLIGHT; TOXIC GRANULATION SLIGHT
--- NOTE | 2018-03-14 21:56 | Admission Physical ---
Datetime Report Generated by CPN: 03/14/2018 21:56 CURRENT ADMISSION Chief Complaint: Uterine Contractions Indication for Induction: Not Applicable Admit Impression : Term, Intrauterine ; Active Labor Admit Plan: Admit to Unit; Initiate Labor Protocol ALLERGIES Medication Allergies: No Medication Allergies: No Known Allergies (03/14/2018) Latex: No Latex Allergies OBSTETRICAL HISTORY EDC: 03/21/2018 00:00 : 7 Para: 4 Term: 4 : 0 SAB: 1 IAB: 1 Ectopic: 0 Livin Cesareans: 0 VBACs: 0 Multiple Births: 0 Gestational Diabetes: No Rh Sensitization: No Incompetent Cervix: No CEZAR: No Infertility: No ART Treatment: No Uterine Anomaly: No IUGR: No Hx Previous C/S: No Macrosomia: No Hx Loss/Stillborn: No PIH: No Hx : No Placenta Previa/Abruption: No Depression/PP Depression: Yes PTL/PROM: No Post Hemorrhage: No Current Procedures: Ultrasound Obstetrical History Comments: G1: 02/2008 41 weeks 7 lbs 4 oz F G2: 03/2010 39 weeks 7 lbs 2 oz F G3: 6 weeks EAB G4: 04/2013 40.3 7lbs 9 oz F G5:11/2014 40 weeks 7lbs 9oz F G6: 01/2017 SAB G7: current: desires BTL, needs D/C medical planner per chart SEE RECORDS Alcohol: No Marijuana : No Cocaine: No Other Illicit Drugs: No Cigarettes: Current Everyday Smoker. [id number] MEDICAL HISTORY Diabetes: No Blood Transfusion: No Pulmonary Disease (Asthma, TB): No Breast Disease: No Hypertension: No Dovetailer Surgery: Yes Heart Disease: No Hosp/Surgery: Yes Autoimmune Disorder: No Anesthetic Complications: No Kidney Disease: No Abnormal Pap Smear: Yes Neuro/Epilepsy: No Psychiatric Disorders: No Other Medical Diseases: No Hepatitis/Liver Disease: No Significant Family History: No Varicosities/Phlebitis: No Trauma/Violence : Unknown Thyroid Dysfunction: No Medical History Comments: JAIMIE II needs LEEP PP, was on xanax prescribed vistaril, depression, anxiety, PTSD, cholecystectomy 2008 INFECTIOUS HISTORY Gonorrhea: No Genital Herpes: No Chlamydia: No Tuberculosis: No Syphilis: No Hepatitis: No HIV/AIDS Exposure: No Rash or Viral Illness: No HPV: Yes Infectious History Comments: HGSIL+ PHYSICAL EXAM General: Normal HEENT: Normal Neurologic: Normal Thyroid: Normal Heart: Normal Lungs: Normal Breast: Deferred Back: Normal Abdomen: Normal Genitourinary Exam: Normal Extremities: Normal DTRs: Normal Pelvic Type: Adequate Vital Signs: Reviewed MEMBRANES Pooling: Positive Membranes: Ruptured FETUS A EGA: 39.0 FHR- Baseline: 120 FHR Category: Category I Presentation: Vertex Admit Comment: anticipate delivery PLANS FOR LABOR AND DELIVERY Labor and Delivery: None Pain Management: Epidural Feeding Preference: Formula Circumcision: N/A INFORMED CONSENT Signature: with User ID: [email or web address]
[2018-03-14] MEDS ORDERED: OXYTOCIN/NORMAL SALINE 20 UNIT/1,000 ML RTUINJ IV PRN (22:03)
[2018-03-14] MEDS ORDERED: BENZOCAINE/MENTHOL AEROSOL SPRAY 56 ML TOP PRN (22:03)
[2018-03-14] MEDS ORDERED: ZOLPIDEM TARTRATE 5 MG TABLET PO PRN (22:03)
[2018-03-14] MEDS ORDERED: DIPH/PERTUSS(ACELL)/TETANUS VAC/PF 0.5 ML SYR (>=10YO) IM PRN (22:03)
[2018-03-14] MEDS ORDERED: DIBUCAINE 1% OINTMENT 28 GM TP PRN (22:03)
[2018-03-14] MEDS ORDERED: MEASLES,MUMPS&RUBELLA VACC/PF 0.5 ML VIAL SUBCUT PRN (22:03)
[2018-03-14] MEDS ORDERED: IBUPROFEN 800 MG TABLET PO ONE (22:45)
--- NOTE | 2018-03-14 23:39 | Delivery Summary ---
Del Sum A-C Datetime Report Generated by CPN: 03/14/2018 23:38 DELIVERY PERSONNEL DELIVERY PERSONNEL: [id number] Delivery Doctor:: Jacqui Wick MD Labor and Delivery Nurse:: Kimberlee Cordero RN Labor and Delivery Nurse:: Ashlee Ramirez RN Nursery Nurse:: Danii Chou RN Glass Melt Operator/RN MDS: Ebonie Hanson, ST MATERNAL INFORMATION Delivery Anesthesia: Epidural Medications After Delivery: Pitocin Drip 20 Units/1000ml NSS Maternal Complications: None Complication Details: IUGR LABOR SUMMARY EDC: 03/21/2018 00:00 No. Babies in Womb: 1 Attempted: No Labor Anesthesia: Epidural LABOR INFORMATION Reason for Induction: Not Applicable Onset of Labor: 03/14/2018 18:48 Complete Dilatation: 03/14/2018 21:24 Oxytocin: N/A Group B Beta Strep: negative Antibiotics # of Doses: 0 Steroids Given: None Reason Steroids Not Administered: Not Applicable MEMBRANES Membranes Rupture Method: Spontaneous Rupture of Membranes: 03/14/2018 21:13 Length of Rupture (hr): 0.35 Amniotic Fluid Color: Clear Amniotic Fluid Amount: Small Amniotic Fluid Odor: Normal STAGES OF LABOR Stage 1 hr: 2 Stage 1 min: 38 Stage 2 hr: 0 Stage 2 min: 10 Stage 3 hr: 0 Stage 3 min: 6 Total Time in Labor hr: 2 Total Time in Labor min: 54 VAGINAL DELIVERY Episiotomy: None Laceration #1: None Laceration Extension #1: N/A Laceration #2: None Laceration #3: None Laceration Repair: Not Applicable Sponge Count Correct: N/A; Vaginal Sweep Performed Sharps Count Correct: N/A CSECTION DELIVERY Primary Indication: N/A Secondary Indication: N/A CSection Incidence: N/A Labor: N/A Elective: N/A CSection Incision: N/A BABY A INFORMATION Infant Delivery Date/Time: 03/14/2018 21:34 Method of Delivery: Vaginal Born in Route : No : N/A Forceps: N/A Vacuum Extraction: N/A Shoulder Dystocia : No PRESENTATION/POSITION BABY A Presentation: Cephalic Cephalic Presentation: Vertex Vertex Position: Left Occipital Anterior Breech Presentation: N/A PLACENTA INFORMATION BABY A Placenta Delivery Time : 03/14/2018 21:40 Placenta Method of Delivery: Spontaneous Placenta Status: Delivered SCORES BABY A Heart Rate 1 min: >100 bpm Resp Effort 1 min: Good Cry Reflex Irritability 1 min: Cough or Sneeze or Pulls Away Muscle Tone 1 min: Active Motion Color 1 min: Blue/Pale Resuscitation Effort 1 min: Tactile Stimulation SCORE 1 MIN: 8 Heart Rate 5 min: >100 bpm Resp Effort 5 min: Good Cry Reflex Irritability 5 min: Cough or Sneeze or Pulls Away Muscle Tone 5 min: Active Motion Color 5 min: Body Wrens, Extremities Blue Resuscitation Effort 5 min: Tactile Stimulation SCORE 5 MIN: 9 INFORMATION BABY A Gestational Age at Delivery: 39.0 Gestational Status: Full Term- 39- 40.6 Weeks Infant Outcome : Liveborn Infant Condition : Stable Infant Sex: Female IDENTIFICATION BABY A Infant Verification Date/Time: 03/14/2018 22:14 ID Band Number: [id number] Mother's Name Verified: Yes Infant RN Verifying : Racquel Cordero, RNC _ Terri Chou, RN WEIGHT/LENGTH BABY A Infant Birthweight (gm): 2430 Weight (lb): 5 Weight (oz): 6 Infant Length (in): 18.25 Infant Length (cm): 46.36 CORD INFORMATION BABY A No. Cord Vessels: 3 Nuchal Cord : N/A Cord Blood Taken: Yes-For Eval (Mom's Blood Type - or O+) Infant Suction: Mouth; Nose ASSESSMENT BABY A Complications: Other Complications- Other: iugr Physical Findings at Delivery: Within Normal Limits Respirations: Appears Normal Skin to Skin: Yes Civil Preparedness Officer/ALS Called : No Care By: lee ming Transferred To: Remains with Mother BABY B INFORMATION : N/A SIGNATURES Signature: with User ID: [email or web address]
[2018-03-15] MEDS: ACETAMINOPHEN WITH CODEINE #3 TABLET PO PRN ×3 (04:43→17:29)
[2018-03-15] MEDS: IBUPROFEN 800 MG TABLET PO SCH ×3 (05:16→21:16)
[2018-03-15 07:39] LABS: HEMATOCRIT 29.3 % (36.0-47.0); HEMOGLOBIN 10.2 g/dL (12.0-15.5); MEAN CORPUSCULAR HEMOGLOBIN 34.3 pg (27.0-33.4); MEAN CORPUSCULAR HGB CONC 34.8 g/dL (32.0-36.0); MEAN CORPUSCULAR VOLUME 99 fl (80-97); PLATELET COUNT 212 10^3/uL (150-450); RED BLOOD COUNT 2.97 10^6/uL (3.72-5.28); RED CELL DISTRIBUTION WIDTH 13.7 % (11.5-14.0); WHITE BLOOD COUNT 15.8 10^3/uL (4.0-10.5)
[2018-03-15] MEDS: FERROUS SULFATE 325 MG TABLET PO SCH ×2 (10:47→17:29)
[2018-03-15] MEDS: PRENATAL VITAMIN W DHA CAPSULE PO SCH (10:47)
[2018-03-15] MEDS: FLUOXETINE HCL 20 MG CAPSULE PO SCH (10:47)
[2018-03-15] MEDS: SENNOSIDES/DOCUSATE 8.6-50 MG 1 EACH TABLET PO SCH (10:47)
[2018-03-15] MEDS: DOCUSATE SODIUM 100 MG CAPSULE PO SCH ×2 (10:47→17:29)
--- NOTE | 2018-03-15 12:54 | PDOC PROGRESS REPORT ---
Subjective-OB Progress Note for:: 03/15/18 Subjective: reports pain controlled with current meds, bleeding slowing, denies needs Physical Exam (OB) Vital Signs: Temp Pulse Resp BP Pulse Ox 97.5 F 63 16 115/74 100 03/15/18 07:23 03/15/18 07:23 03/15/18 07:23 03/15/18 07:23 03/15/18 07:23 Intake & Output 03/14/18 03/15/18 03/16/18 06:59 06:59 06:59 Intake Total 220 Balance 220 Weight 62.1 kg - Abdomen Description: Soft, Flat Hernia Present: No Fundal Description: Firm, Midline Fundal Height: u/u - u/2 - Abdominal Distension: No distension Tenderness: Nontender - Extremities Lower extremities: Marco A's sign - neg Calf: Normal, Nontender Objective-Diagnostic Laboratory: 03/15/18 07:15 03/14/18 03/14/18 03/14/18 18:12 19:14 19:14 WBC 13.8 H RBC 3.04 L Hgb 10.6 L Hct 29.4 L MCV 97 MCH 34.7 H MCHC 36.0 RDW 13.4 Plt Count 228 Seg Neutrophils % Not Reportable Lymphocytes % Not Reportable Monocytes % Not Reportable Eosinophils % Not Reportable Basophils % Not Reportable Absolute Neutrophils Not Reportable Absolute Lymphocytes Not Reportable Absolute Monocytes Not Reportable Absolute Eosinophils Not Reportable Absolute Basophils Not Reportable Urine Color DARK YELLOW Urine Appearance CLOUDY Urine pH 6.0 Ur Specific [place] 1.024 Urine Protein NEGATIVE Urine Glucose (UA) NEGATIVE Urine Ketones NEGATIVE Urine Blood NEGATIVE Urine Nitrite NEGATIVE Ur Leukocyte Esterase TRACE H Blood Type O POSITIVE Antibody Screen NEGATIVE 03/15/18 07:15 WBC 15.8 H RBC 2.97 L Hgb 10.2 L Hct 29.3 L MCV 99 H MCH 34.3 H MCHC 34.8 RDW 13.7 Plt Count 212 Seg Neutrophils % Lymphocytes % Monocytes % Eosinophils % Basophils % Absolute Neutrophils Absolute Lymphocytes Absolute Monocytes Absolute Eosinophils Absolute Basophils Urine Color Urine Appearance Urine pH Ur Specific [place] Urine Protein Urine Glucose (UA) Urine Ketones Urine Blood Urine Nitrite Ur Leukocyte Esterase Blood Type Antibody Screen Assessment and Plan(PN) - Assessment and Plan (1) Normal vaginal delivery Is this a current diagnosis for this admission?: Yes - Time Spent with Patient Time with patient: Less than 15 minutes Medications reviewed and adjusted accordingly: Yes - Disposition Anticipated Discharge: Home Within: within 24 hours
[2018-03-16] MEDS: ACETAMINOPHEN WITH CODEINE #3 TABLET PO PRN ×3 (00:20→13:17)
[2018-03-16] MEDS: IBUPROFEN 800 MG TABLET PO SCH ×2 (05:31→13:17)
[2018-03-16] MEDS: PRENATAL VITAMIN W DHA CAPSULE PO SCH (10:08)
[2018-03-16] MEDS: FLUOXETINE HCL 20 MG CAPSULE PO SCH (10:08)
[2018-03-16] MEDS: SENNOSIDES/DOCUSATE 8.6-50 MG 1 EACH TABLET PO SCH (10:08)
[2018-03-16] MEDS: DOCUSATE SODIUM 100 MG CAPSULE PO SCH (10:09)
[2018-03-16] MEDS: FERROUS SULFATE 325 MG TABLET PO SCH (10:09)
[2018-03-16 11:08] VITALS: BP 120/77
--- NOTE | 2018-03-16 14:10 | PDOC DISCHARGE SUMMARY ---
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 Is this a current diagnosis for this admission?: Yes (5) Normal vaginal delivery Is this a current diagnosis for this admission?: Yes Discharge Data - Discharge Medication Prescriptions: Ibuprofen [Motrin 800 mg Tablet] 800 mg PO Q8HP PRN #60 tablet PRN Reason: Docusate Sodium [Colace 100 mg Capsule] 100 mg PO BID #60 capsule Ferrous Sulfate [Feosol 325 mg Tablet] 325 mg PO BID #60 tablet Home Medications: Alprazolam [Xanax] 0.5 tab PO DAILYP PRN 12/22/16 Hydroxyzine Pamoate [Vistaril 50 mg Capsule] 50 mg PO HSP PRN 03/14/18 Ferrous Sulfate [Feosol 325 mg Tablet] 325 mg PO BID 03/15/18 Gabapentin [Neurontin 400 mg Capsule] 400 mg PO TID 03/15/18 No.52/Iron/FA/Dha [Security Public Safety Officer-Pnv-Dha Softgel] 1 each PO DAILY 03/15/18 Docusate Sodium [Colace 100 mg Capsule] 100 mg PO BID #60 capsule 03/16/18 Ferrous Sulfate [Feosol 325 mg Tablet] 325 mg PO BID #60 tablet 03/16/18 Fluoxetine HCl [Prozac 20 mg Capsule] 40 mg PO DAILY capsule 03/16/18 Ibuprofen [Motrin 800 mg Tablet] 800 mg PO Q8HP PRN #60 tablet 03/16/18 Reason(s) for Admission: Onset of Labor Procedures: NST, Ultrasound Intrapartum Procedure(s): Spontaneous Vaginal Delivery - Diagnosis Test Laboratory: Temp Pulse Resp BP Pulse Ox 98.1 F 58 L 14 120/77 98 03/16/18 14:03 03/16/18 14:03 03/16/18 14:03 03/16/18 14:03 03/16/18 14:03 03/14/18 03/14/18 03/15/18 18:12 19:14 07:15 RBC 3.04 L 2.97 L Hgb 10.6 L 10.2 L Hct 29.4 L 29.3 L Urine Opiates Screen NEGATIVE - Discharge information/Instructions Discharge Activity: Activity As Tolerated, Balance Activity w/Rest, No Lifting Over 10 Pounds, No Lifting/Push/Pulling, Pelvic Rest, No tub bath Discharge Diet: As Tolerated, Regular Disposition: HOME, SELF-CARE Follow up with: [facility] in: 1, Weeks - f/u anxiety pp will also need pp leep
== END 2018-03-16 14:40 | disposition home or self-care (01) | DRG 807 ==
LOC: LC 18:08 → LR 18:40 → 2S 03-15 00:02
PROVIDERS: ADMIT Obstetrics & Gynecology; ATTEND Obstetrics & Gynecology
PROC: 10E0XZZ Delivery of Products of Conception, External Approach (ICD-10-PCS; principal; 2018-03-14)
DX: O36.5930 Maternal care for other known or suspected poor fetal growth, third trimester, not applicable or unspecified (principal); Z37.0 Single live birth; O75.89 Other specified complications of labor and delivery; N87.1 Moderate cervical dysplasia; O99.02 Anemia complicating childbirth; D64.9 Anemia, unspecified; O99.334 Smoking (tobacco) complicating childbirth; F17.210 Nicotine dependence, cigarettes, uncomplicated; O99.344 Other mental disorders complicating childbirth; F41.8 Other specified anxiety disorders; F43.10 Post-traumatic stress disorder, unspecified; Z3A.39 39 weeks gestation of pregnancy
CPT/HCPCS: 36415; 80307; 81005; 85025; 85027; 86592; 86850; 86900; 86901; 94760; J2590; J3010; J3490

== ENCOUNTER 2018-04-06 09:14 | Emergency (ER) | payer MEDICAID ==
[2018-04-06 09:20] VITALS: BP 129/83
[2018-04-06] MEDS ORDERED: HYDROCODONE/ACETAMINOPHEN 5-325 MG TABLET PO ONE (09:29)
[2018-04-06] MEDS ORDERED: ONDANSETRON 4 MG TAB.RAPDIS PO PRN (09:29)
--- NOTE | 2018-04-06 09:32 | ER Document Report ---
ED Medical Screen (RME) - General Chief Complaint: Cyst Stated Complaint: FOOT PAIN Time Seen by Provider: 04/06/18 09:24 TRAVEL OUTSIDE OF THE [place] IN LAST 30 DAYS: No - HPI Patient complains to provider of: foot swelling Onset: Other - 33-year-old female presents for evaluation of a cyst on her foot for which she was seen by an orthopedic surgeon previously. Orthopedic surgeon suggested she undergo MRI, she has not had the MRI scheduled yet. She has had worsening pain but no other symptoms. - Related Data Allergies/Adverse Reactions: No Known Allergies Allergy (Verified 04/06/18 09:30) Past Medical History - Social History Chew tobacco use (# tins/day): No Frequency of alcohol use: Occasional Drug Abuse: None - Past Medical History Cardiac Medical History: Denies: Hx Coronary Artery Disease, Hx Heart Attack, Hx Hypertension Pulmonary Medical History: Reports: Hx Pneumonia Denies: Hx Asthma, Hx Bronchitis, Hx COPD Neurological Medical History: Denies: Hx Cerebrovascular Accident, Hx Seizures Renal/ Medical History: Denies: Hx Peritoneal Dialysis Musculoskeltal Medical History: Denies Hx Arthritis, Reports Hx Musculoskeletal Trauma Psychiatric Medical History: Reports: Hx Anxiety, Hx Depression - & anxiety Traumatic Medical History: Reports: Hx Fractures Past Surgical History: Reports: Hx Cholecystectomy - Immunizations Hx Diphtheria, Pertussis, Tetanus Vaccination: No Physical Exam - Vital signs Vitals: Temp Pulse Resp BP Pulse Ox 97.5 F 71 14 129/83 H 97 04/06/18 09:18 04/06/18 09:18 04/06/18 09:18 04/06/18 09:18 04/06/18 09:18 Course - Re-evaluation Re-evalutation: 04/06/18 09:31 33-year-old female who presents for evaluation of a cyst on her foot. She is currently awaiting scheduling of MRI to evaluate this assist further by her orthopedic surgeon. The cyst itself appears normal, with no obvious suggestion of abscess 0 no secondary signs of infection. I have seen and performed a rapid medical screening examination for this patient. They will require further investigation and disposition determination by a second provider . - Vital Signs Vital signs: Temp Pulse Resp BP Pulse Ox 97.5 F 71 14 129/83 H 97 04/06/18 09:18 04/06/18 09:18 04/06/18 09:18 04/06/18 09:18 04/06/18 09:18 Doctor's Discharge - Discharge Referrals: KHALIF PINEDA MD [Primary Care Provider] - Follow up as needed
--- NOTE | 2018-04-06 09:44 | ER Document Report ---
ED General - General Chief Complaint: Cyst Stated Complaint: FOOT PAIN Time Seen by Provider: 04/06/18 09:24 Notes: Patient is a 33 year old female that presents to the emergency department for chief complaint of a cyst on her foot. Patient states that about 5-6 weeks ago her daughter had accidently dropped a heavy battery onto her right foot. She was initially seen in the ED at that time, and was discharged to follow-up with orthopedic surgery and her PCP. She did see her primary care physician who drained the ganglion cyst, it has since come back and she did go to see orthopedic surgery who recommended an MRI which she has not had yet. She came to the ED today due to the pain not improving. She currently rates her pain as a 6/10 and worse with walking and when there is pressure over her foot such as putting on shoes. She denies any numbness, tingling or weakness distally. Past Medical History: denies chronic medical conditions Past Surgical History: cholecystectomy Social History: denies tobacco, alcohol, or illicit drug use. Family History: Reviewed and noncontributory for presenting illness Allergies: Reviewed, see documented allergy list. REVIEW OF SYSTEMS: Other than noted above, the 12 point review of systems was reviewed with the patient and were negative, all pertinent findings are included in the HPI. PHYSICAL EXAMINATION: Vital signs reviewed, nursing noted reviewed. GENERAL: Well-appearing, well-nourished and in no acute distress. HEAD: Atraumatic, normocephalic. EYES: Eyes appear normal, extraocular movements intact, sclera anicteric, conjunctiva are normal. ENT: nares patent, oropharynx clear without exudates. Moist mucous membranes. NECK: Normal range of motion, supple without lymphadenopathy LUNGS: Breath sounds clear to auscultation bilaterally and equal. No wheezes rales or rhonchi. HEART: Regular rate and rhythm without murmurs ABDOMEN: Soft, nontender, normoactive bowel sounds. No rebound, guarding, or rigidity. No masses appreciated. EXTREMITIES: On the mid, medial right dorsal foot demonstrated a 1.5x1.5cm ganglion cyst, mild tenderness to palpation, no evidence of infection. Normal tendon function noted, no other acute or concerning finding noted. good range of motion, no pitting or edema. NEUROLOGICAL: No focal neurological deficits. Moves all extremities spontaneously Motor and sensory grossly intact on exam. PSYCH: Normal mood, normal affect. SKIN: Warm, Dry, normal turgor, no rashes or lesions noted on exposed skin TRAVEL OUTSIDE OF THE [place] IN LAST 30 DAYS: No - Related Data Allergies/Adverse Reactions: No Known Allergies Allergy (Verified 04/06/18 09:30) Past Medical History - Social History Smoking Status: Current Every Day Smoker Chew tobacco use (# tins/day): No Frequency of alcohol use: Occasional Drug Abuse: None Family History: Arthritis, CAD, CVA, DM, Hyperlipidemia, Hypertension, Malignancy. denies: COPD, Thyroid Disfunction Patient has suicidal ideation: No Patient has homicidal ideation: No - Past Medical History Cardiac Medical History: Denies: Hx Coronary Artery Disease, Hx Heart Attack, Hx Hypertension Pulmonary Medical History: Reports: Hx Pneumonia Denies: Hx Asthma, Hx Bronchitis, Hx COPD Neurological Medical History: Denies: Hx Cerebrovascular Accident, Hx Seizures Renal/ Medical History: Denies: Hx Peritoneal Dialysis Musculoskeletal Medical History: Denies Hx Arthritis, Reports Hx Musculoskeletal Trauma Psychiatric Medical History: Reports: Hx Anxiety, Hx Depression - & anxiety Traumatic Medical History: Reports: Hx Fractures Past Surgical History: Reports: Hx Cholecystectomy - Immunizations Hx Diphtheria, Pertussis, Tetanus Vaccination: No Physical Exam - Vital signs Vitals: Temp Pulse Resp BP Pulse Ox 97.5 F 71 14 129/83 H 97 04/06/18 09:18 04/06/18 09:18 04/06/18 09:18 04/06/18 09:18 04/06/18 09:18 Course - Re-evaluation Re-evalutation: Patient exam most consistent with a ganglion cyst, no signs of infection, no new injury. I discussed at length the treatments for ganglion cysts with the patient and that she needs to continue follow -up with orthopedics or her primary care for management, she was advised to warm compresses and given 6 tablets of norco to take for pain and advised to use OTC motrin or aleve for pain. She was agreeable and discharged to home. - Vital Signs Vital signs: Temp Pulse Resp BP Pulse Ox 97.5 F 71 14 129/83 H 97 04/06/18 09:18 04/06/18 09:18 04/06/18 09:18 04/06/18 09:18 04/06/18 09:18 Discharge - Discharge Clinical Impression: Ganglion cyst of right foot Condition: Stable Disposition: HOME, SELF-CARE Instructions: Ganglion Cyst ([facility]) Referrals: KHALIF PINEDA MD [Primary Care Provider] - Follow up in 3-5 days YENY GARCIA MD [ACTIVE STAFF] - Follow up in 3-5 days
[2018-04-06] MEDS ORDERED: HYDROCODONE/ACETAMINOPHEN 5-325 MG (6 TAB/ER DISP) PO PRN (10:07)
== END 2018-04-06 10:49 | disposition home or self-care (01) ==
LOC: ER 09:14
DX: M67.471 Ganglion, right ankle and foot (principal); M79.671 Pain in right foot; F17.200 Nicotine dependence, unspecified, uncomplicated; Z90.49 Acquired absence of other specified parts of digestive tract
CPT/HCPCS: 99283; S0119

== ENCOUNTER 2018-09-16 09:57 | Emergency (ER) | payer MEDICAID ==
[2018-09-16 10:05] VITALS: BP 135/79
[2018-09-16] MEDS ORDERED: ONDANSETRON 4 MG TAB.RAPDIS PO ONE (11:30)
[2018-09-16] MEDS ORDERED: IBUPROFEN 600 MG TABLET PO ONE (11:30)
--- NOTE | 2018-09-16 11:33 | ER Document Report ---
ED Neck/Back Problem - General Chief Complaint: Back Pain Stated Complaint: NAUSEA/BACK PAIN Time Seen by Provider: 09/16/18 11:23 Primary Care Provider: KHALIF PINEDA MD [ACTIVE STAFF] - Follow up as needed Mode of Arrival: Ambulatory Information source: Patient TRAVEL OUTSIDE OF THE [place] IN LAST 30 DAYS: No - HPI Patient complains to provider of: Pain, Lower back Notes: Patient is here with complaints of nausea, no vomiting with some lower back pain for the last few days. No trauma or fall. Nothing makes the pain better or worse. No abdominal pain. She does complain of some urinary urgency, frequency. She denies any fevers. She is currently on her menstrual cycle. She denies any vaginal discharge. No chest pain or shortness of breath. No bowel or bladder dysfunction. No numbness, tingling, weakness. No IV drug use. No fevers. No rash. She also states she is been having some intermittent headaches. She denies any significant headache currently. No other complaints at this time. - Related Data Allergies/Adverse Reactions: No Known Allergies Allergy (Verified 09/16/18 10:01) Past Medical History - Social History Smoking Status: Unknown if Ever Smoked Family History: Arthritis, CAD, CVA, DM, Hyperlipidemia, Hypertension, Malignancy. denies: COPD, Thyroid Disfunction - Past Medical History Cardiac Medical History: Denies: Hx Coronary Artery Disease, Hx Heart Attack, Hx Hypertension Pulmonary Medical History: Reports: Hx Pneumonia Denies: Hx Asthma, Hx Bronchitis, Hx COPD Neurological Medical History: Denies: Hx Cerebrovascular Accident, Hx Seizures Renal/ Medical History: Denies: Hx Peritoneal Dialysis Musculoskeletal Medical History: Denies Hx Arthritis, Reports Hx Musculoskeletal Trauma Psychiatric Medical History: Reports: Hx Anxiety, Hx Depression - & anxiety Traumatic Medical History: Reports: Hx Fractures Past Surgical History: Reports: Hx Cholecystectomy - Immunizations Hx Diphtheria, Pertussis, Tetanus Vaccination: No Review of Systems - Review of Systems -: Yes All other systems reviewed and negative Physical Exam - Vital signs Vitals: Temp Pulse Resp BP Pulse Ox 98.9 F 85 18 135/79 H 99 09/16/18 10:04 09/16/18 10:04 09/16/18 10:04 09/16/18 10:04 09/16/18 10:04 - Notes Notes: GENERAL: alert, cooperative, nontoxic, no distress. HEAD: normocephalic, atraumatic EYES: conjunctiva pink without discharge, no external redness or swelling. EARS: no external swelling, no external redness NOSE: atraumatic, no external swelling MOUTH/THROAT: mucous membranes moist and pink, posterior pharynx without erythema, swelling, exudate. No trismus or drooling. NECK: soft, supple, full range of motion, no meningismus. CHEST: no distress, lungs clear and equal throughout. No wheezing, rales, rhonchi. CARDIAC: regular rate and rhythm, no murmur, normal capillary refill, normal pulses. No peripheral edema noted. ABDOMEN: soft, nontender, no pusatile mass. BACK: No CVA tenderness. No midline tenderness step-offs or crepitus. Full range of motion. EXTREMITIES: full range of motion of all extremities. No redness, no swelling. NEURO: alert and oriented A&O x 3, no focal deficits, full range of motion of all extremities. 5 out of 5 flexion and extension of the lower extremities bilaterally. Patellar and Achilles deep tendon reflexes are +2 bilaterally. Normal sensation with no saddle anesthesia. Patient can dorsiflex the great toes bilaterally. PYSCH: appropriate mood, affect. Patient is cooperative. SKIN: pink, warm, dry, no rash. Course - Re-evaluation Re-evalutation: 09/16/18 12:53 Patient is nontoxic-appearing with stable vitals. Here with complaints of some urinary urgency as well as some low back pain. No sign risk of cauda equina, epidural abscess/bleed, discitis, osteomyelitis. No abdominal tenderness on exam. Urine negative. Urinalysis shows blood with no other signs of abnormality. She is currently on her menstrual cycle. She declines any concerns at all for sexually transmitted infections. Patient was given Zofran and ibuprofen here and is feeling significant better at this time. I have ordered a urine culture since she is having some low back pain with some urinary symptoms. She has an appointment scheduled with her primary care doctor on Thursday which I did urge her to keep. She instructed to rest, drink plenty fluids, follow-up with her primary care doctor as scheduled. Return the emergency department for worsening pain, high fever, severe abdominal pain, persistent vomiting, bowel or bladder dysfunction, or for any further concerns. The patient's emergency department workup and current diagnosis were explained to the patient and or family. Follow-up instructions were provided. Medications if prescribed were discussed. Instructions for when to return to the emergency department including specific worrisome symptoms were discussed with the patient and/or family. - Vital Signs Vital signs: Temp Pulse Resp BP Pulse Ox 98.9 F 85 18 135/79 H 99 09/16/18 10:04 09/16/18 10:04 09/16/18 10:04 09/16/18 10:04 09/16/18 10:04 - Laboratory Laboratory results interpreted by me: 09/16/18 11:35 Urine Blood MODERATE H Discharge - Discharge Clinical Impression: Low back pain Qualifiers: Chronicity: acute Back pain laterality: unspecified Sciatica presence: without sciatica Qualified Code(s): M54.5 - Low back pain Condition: Stable Disposition: HOME, SELF-CARE Instructions: Low Back Pain ([facility]) Additional Instructions: Take medication as prescribed. Drink plenty fluids. Follow-up with your doctor as scheduled on Thursday. Follow-up sooner for worsening pain, high fever, severe abdominal pain, persistent vomiting, difficulty controlling your bowels or bladder, or for any further concerns. Prescriptions: Naproxen [Naprosyn] 500 mg PO BID #20 tablet Ondansetron HCl [Zofran 4 mg Tablet] 1 tab PO Q4H PRN #10 tablet PRN Reason: Forms: Elevated Blood Pressure, Smoking Cessation Education Referrals: KHALIF PINEDA MD [ACTIVE STAFF] - Follow up as needed
[2018-09-16 12:03] LABS: APPEARANCE,URINE SLIGHTLY-CLOUDY; BILIRUBIN,URINE NEGATIVE (NEGATIVE); COLOR,URINE YELLOW; GLUCOSE, URINE NEGATIVE (NEGATIVE); KETONES,URINE NEGATIVE (NEGATIVE); LEUKOCYTE ESTERASE,URINE NEGATIVE (NEGATIVE); NITRITE,URINE NEGATIVE (NEGATIVE); PROTEIN,URINE NEGATIVE (NEGATIVE); URINE SPECIFIC GRAVITY 1.014; UROBILINOGEN,URINE NEGATIVE mg/dL (<2.0)
== END 2018-09-16 13:00 | disposition home or self-care (01) ==
LOC: ER 09:57
DX: M54.5 Low back pain (principal); R11.0 Nausea; R39.15 Urgency of urination; R35.0 Frequency of micturition
CPT/HCPCS: 99283; 87086; 81025; 81001; S0119; J3490

== ENCOUNTER 2020-01-31 11:09 | Outpatient (CLI) | payer OTHER ==
--- NOTE | 2020-01-31 13:55 | Non Stress Test Report ---
Non Stress Test Datetime Report Generated by CPN: 01/31/2020 13:55 DEMOGRAPHIC Test Number: 1 EGA NST: 34.0 INDICATION Indication for Study (NST) Other: NR NST in office VITAL SIGNS Temperature - NST: 99.6 Pulse - NST: 86 RESP - NST: 18 NBPSYS NST: 100 NBPDIA NST: 53 MONITORING Monitor Explained: Monitor Explained; Test Explained; Patient Verbalized Understanding Time on Monitor: 01/31/2020 11:34 Time off Monitor: 01/31/2020 13:01 NST Duration: 87 NST INTERVENTIONS NST Interventions: PO Hydration; Reposition Patient Physician Notified NST: A Delgadillo BABY A: [id number] Movement : Present Contraction Frequency : 0 FHR Baseline : 140 Accelerations : 15X15 Decelerations : None Variability : Moderate 6-25bpm NST Review: Meets Criteria for Reactive NST NST Review and Verified By : JENNIFER Sánchez NST Results: Reactive NST REPORT Report Trigger: Send Report
--- NOTE | 2020-01-31 14:25 | RADIOLOGY REPORT (SQ) ---
EXAM DESCRIPTION: U/S PROFILE W/O STRESS IMAGES COMPLETED DATE/TIME: 01/31/2020 2:00 pm REASON FOR STUDY: NR NST COMPARISON: None. TECHNIQUE: Limited marshall-scale realtime and static images of the fetus to measure specified parameter s. LIMITATIONS: None. FINDINGS: HEART RATE: 144 beats per minute. JERSON: 17.9 cm. MVP: 6.6 x 6.4 cm. BREATHING MOVEMENT: 2 points. MOVEMENT: 2 points. POSTURE AND TONE: 2 points. QUALITATIVE JERSON: 2 points. OTHER: Cervix measures 4 cm. Anterior placenta. Vertex presentation. Clinical gestational age 34 w eeks 0 days IMPRESSION: BIOPHYSICAL PROFILE: 12/16. Trimester of : Third - 28 weeks to delivery COMMENT: BREATHING MOVEMENTS: 2 POINTS: PRESENT 0 POINTS: ABSENT MOTION: 2 POINTS: PRESENT 0 POINTS: ABSENT TONE: 2 POINTS: PRESENT 0 POINTS: ABSENT AMNIOTIC FLUID VOLUME: 2 POINTS: LARGEST POCKET GREATER THAN 2 CM DEPTH. 0 POINTS: NO POCKET OF 2 CM. TECHNICAL DOCUMENTATION: JOB ID: [id number] 2010 [employer]- All Rights Reserved Reading location - IP/workstation name: [email or web address]
== END 2020-01-31 14:15 | disposition home or self-care (01) ==
LOC: LC 11:09
PROVIDERS: ATTEND Obstetrics & Gynecology
DX: Z34.93 Encounter for supervision of normal pregnancy, unspecified, third trimester (principal)
CPT/HCPCS: 59025; 76819

== ENCOUNTER 2020-02-26 17:58 | Inpatient (IN) | payer OTHER ==
[2020-02-26] MEDS ORDERED: OXYTOCIN 10 UNIT/ML VIAL ONE (18:01)
[2020-02-26] MEDS ORDERED: MISOPROSTOL 0.2 MG TABLET ONE (18:01)
[2020-02-26] MEDS ORDERED: LIDOCAINE 1% INJ-PF (10 MG/ML) 30 ML SDV ONE (18:02)
[2020-02-26] MEDS ORDERED: OXYTOCIN/0.9 % SODIUM CHLORIDE 30 UNIT/500 ML RTUINJ ONE (18:02)
[2020-02-26] MEDS ORDERED: OXYTOCIN/0.9 % SODIUM CHLORIDE 30 UNIT/500 ML RTUINJ IV PRN (18:07)
[2020-02-26] MEDS ORDERED: MAG HYDROX/AL HYDROX/SIMETH SUSP 30 ML UDCUP PO PRN (18:07)
[2020-02-26] MEDS ORDERED: ACETAMINOPHEN 325 MG TABLET PO PRN (18:07)
[2020-02-26] MEDS ORDERED: ZOLPIDEM TARTRATE 5 MG TABLET PO PRN (18:07)
[2020-02-26 18:42] LABS: APPEARANCE,URINE SLIGHTLY-CLOUDY; BILIRUBIN,URINE NEGATIVE (NEGATIVE); COLOR,URINE YELLOW; GLUCOSE, URINE NEGATIVE (NEGATIVE); KETONES,URINE NEGATIVE (NEGATIVE); LEUKOCYTE ESTERASE,URINE NEGATIVE (NEGATIVE); NITRITE,URINE NEGATIVE (NEGATIVE); PROTEIN,URINE NEGATIVE (NEGATIVE); URINE SPECIFIC GRAVITY 1.011; UROBILINOGEN,URINE NEGATIVE mg/dL (<2.0)
[2020-02-26] MEDS ORDERED: DINOPROSTONE 10 MG VAGINAL INSERT.SR PV ONE (18:59)
[2020-02-26] MEDS ORDERED: RINGERS SOLUTION,LACTATED 300 ML IV ONE (18:59)
[2020-02-26 19:03] LABS: ABSOLUTE BASOPHILS # (AUTO) 0.1 10^3/uL (0.0-0.2); ABSOLUTE EOSINOPHILS # (AUTO) 0.1 10^3/uL (0.0-0.6); ABSOLUTE LYMPHOCYTES (AUTO) 2.6 10^3/uL (0.5-4.7); ABSOLUTE MONOCYTES (AUTO) 0.8 10^3/uL (0.1-1.4); BASOPHILS % (AUTO) 0.5 % (0-2); EOSINOPHILS % (AUTO) 0.6 % (0-6); HEMATOCRIT 27.7 % (36.0-47.0); HEMOGLOBIN 9.8 g/dL (12.0-15.5); LYMPHOCYTES % (AUTO) 20.5 % (13-45); MEAN CORPUSCULAR HEMOGLOBIN 34.6 pg (27.0-33.4); MEAN CORPUSCULAR HGB CONC 35.2 g/dL (32.0-36.0); MEAN CORPUSCULAR VOLUME 98 fl (80-97); MONOCYTES % (AUTO) 6.5 % (3-13); PLATELET COUNT 248 10^3/uL (150-450); RED BLOOD COUNT 2.82 10^6/uL (3.72-5.28); RED CELL DISTRIBUTION WIDTH 14.6 % (11.5-14.0); SEGMENTED NEUTROPHILS % (AUTO) 71.9 % (42-78); TOTAL CELLS COUNTED % (AUTO) 100 %; WHITE BLOOD COUNT 12.5 10^3/uL (4.0-10.5)
[2020-02-26 19:13] LABS: URINE AMPHETAMINES SCREEN NEGATIVE; URINE BARBITURATES SCREEN NEGATIVE; URINE COCAINE SCREEN NEGATIVE; URINE MARIJUANA (THC) SCREEN NEGATIVE; URINE METHADONE SCREEN NEGATIVE; URINE PHENCYCLIDINE SCREEN NEGATIVE
[2020-02-26 19:18] LABS: URINE BENZODIAZEPINES SCREEN UNCONFIRMED POSITIVE
[2020-02-26] MEDS ORDERED: DINOPROSTONE 10 MG VAGINAL INSERT.SR ONE (20:16)
[2020-02-26] MEDS ORDERED: ZOLPIDEM TARTRATE 5 MG TABLET ONE (20:28)
[2020-02-26] MEDS: RINGERS SOLUTION,LACTATED 1,000 ML IV PRN (20:34)
[2020-02-26] MEDS ORDERED: ZOLPIDEM TARTRATE 5 MG TABLET PO ONE (21:00)
[2020-02-27] MEDS ORDERED: MISOPROSTOL 0.1 MG TABLET ONE (09:20)
--- NOTE | 2020-02-27 09:32 | L&D Progress Notes ---
PROGRESS NOTES Datetime Report Generated by CPN: 02/27/2020 09:32 PROGRESS NOTE Impression: Normal Progression of Labor Impression Other: Comfortable s/p Cervidil: Cervix 1/50/-3, cytotec 25 mcg PV plac Plan: Continue Present Management Informed Consent Obtained: Vaginal Delivery; Section Delivery; Induction of Labor; Vacuum/Forceps Assist; Risks, Benefits and Alternatives Discussed Vital Signs : Reviewed VAGINAL EXAM Dilatation: 1 Effacement: 50 Station: -3 Contractions: irregular LAST VAGINAL EXAM-NURSING Nursing Exam Dilitation: closed Nursing Exam Effacement: thick Nursing Exam Station: -3 FETUS A FHR - Baseline: 135 Variability: Moderate 6-25bpm Accelerations: 15X15 Decelerations: None FHR Category: Category I SIGNATURE SIGNATURE: [id number];[id number] Signature: with User ID: [email or web address] : with User ID: [email or web address]
--- NOTE | 2020-02-27 09:36 | Admission Physical ---
Datetime Report Generated by CPN: 02/27/2020 09:36 CURRENT ADMISSION Hx Assessment: The History has been Reviewed and is Current Chief Complaint: Scheduled Induction of Labor Chief Complaint Other: at 37.5 wks EGA IOL for IUGR Denies ctx, VB or LOF Indication for Induction: IUGR Indication for Induction- Other: IUGR Admit Impression : Term, Intrauterine ; Induction of Labor Admit Plan: Admit to Unit; Initiate Labor Induction Protocol ALLERGIES Medication Allergies: No Medication Allergies: No Known Allergies (02/26/2020) Latex: No Latex Allergies Food Allergies: none Environmental Allergies: none OBSTETRICAL HISTORY EDC: 03/13/2020 00:00 : 8 Para: 5 Term: 5 : 0 SAB: 0 IAB: 0 Ectopic: 1 Livin Cesareans: 0 VBACs: 0 Multiple Births: 0 Gestational Diabetes: No Rh Sensitization: No Incompetent Cervix: No CEZAR: No Infertility: No ART Treatment: No Uterine Anomaly: No IUGR: Yes Hx Previous C/S: No Macrosomia: No Hx Loss/Stillborn: No PIH: No Placenta Previa/Abruption: No Depression/PP Depression: Yes PTL/PROM: No Post Hemorrhage: No Current Procedures: Ultrasound; NST Obstetrical History Comments: G1- 2008, 41 weeks, G2- 2010, 39 weeks, G3- 2012, Ectopic G4- 2013, 40.3 weeks, G5- 2014, 40 weeks, G6- 2017, 4 weeks, SAB G7- 2017, 39 weeks, G8- Current, IUGR, abnormal dopplers SEE RECORDS Alcohol: No Marijuana : No Cocaine: No Other Illicit Drugs: No Cigarettes: Current Everyday Smoker. [id number] Cigarette Frequency: 5 - 10 per day Advised to Stop: Yes MEDICAL HISTORY Diabetes: No Blood Transfusion: No Pulmonary Disease (Asthma, TB): Yes Breast Disease: No Heart Disease: No Hosp/Surgery: Yes Autoimmune Disorder: No Kidney Disease: Yes Abnormal Pap Smear: Yes Neuro/Epilepsy: No Psychiatric Disorders: No Other Medical Diseases: No Hepatitis/Liver Disease: No Significant Family History: No Varicosities/Phlebitis: No Trauma/Violence : No Thyroid Dysfunction: No Medical History Comments: HGSIL+HPV, ColpoLEEP 2019, ASCUS+HPV 2020, eddy,D_C, Depression treated with xanax, buspar, vistaril for sleep, Hx of UTI INFECTIOUS HISTORY Gonorrhea: No Genital Herpes: Yes Chlamydia: No Tuberculosis: No Syphilis: No Hepatitis: No HIV/AIDS Exposure: No Rash or Viral Illness: No HPV: Yes PHYSICAL EXAM General: Normal HEENT: Normal Neurologic: Normal Thyroid: Normal Heart: Normal Lungs: Normal Breast: Normal Back: Normal Abdomen: Normal Genitourinary Exam: Normal Extremities: Normal DTRs: Normal Pelvic Type: Adequate Vital Signs: Reviewed VAGINAL EXAM Dilatation: 1 Effacement: 50 Station: -3 Contraction Comments: irregular FETUS A EGA: 37.5 Monitoring: External US FHR- Baseline: 135 Variability: Moderate 6-25bpm Accelerations: 15X15 Decelerations: None FHR Category: Category I Presentation: Vertex Admit Comment: at 37.5 wks EGA for IOL d/t complicated by IUGR -Admit to LDR -NPO and IVFs -CEFM and toco -GBS negative -Plan for cervidil IOL -Anticipate as she has hx of prior SVDs PLANS FOR LABOR AND DELIVERY Labor and Delivery: None Pain Management: Epidural Feeding Preference: Formula Benefit of Breast Feed Discussed: Yes Circumcision: N/A INFORMED CONSENT Informed Consent Obtained: Vaginal Delivery; Section Delivery; Induction of Labor; Vacuum/Forceps Assist; Risks, Benefits and Alternatives Discussed Signature: with User ID: [email or web address] : with User ID: [email or web address]
[2020-02-27] MEDS: RINGERS SOLUTION,LACTATED 1,000 ML IV PRN (14:47)
[2020-02-27] MEDS ORDERED: EPHEDRINE SULFATE INJ 50 MG/1 ML AMPULE ONE (17:18)
[2020-02-27] MEDS ORDERED: ROPIVACAINE HCL 0.2% INJ/PF (2 MG/ML) 20 ML SDV ONE (17:18)
[2020-02-27] MEDS ORDERED: FENTANYL/BUPIVACAINE/NS/PF 300 MCG/150 ML RTUINJ EPI ONE (17:18)
[2020-02-27] MEDS ORDERED: PROMETHAZINE HCL INJ 25 MG/1 ML VIAL IV PRN (19:20)
[2020-02-27] MEDS ORDERED: PSEUDOEPHEDRINE HCL 30 MG TABLET PO PRN (19:20)
[2020-02-27] MEDS ORDERED: NA PHOS,M-B/NA PHOS,DI-BA (ADULT) 133 ML ENEMA PR PRN (19:20)
[2020-02-27] MEDS ORDERED: BENZOCAINE/MENTHOL AEROSOL SPRAY 56 ML TOP PRN (19:20)
[2020-02-27] MEDS ORDERED: GLYCERIN/WITCH HAZEL LEAF 1 EACH MED..WIPE TP PRN (19:20)
[2020-02-27] MEDS ORDERED: DIPHENHYDRAMINE HCL 25 MG CAPSULE PO PRN (19:20)
[2020-02-27] MEDS ORDERED: DIPH/PERTUSS(ACELL)/TETANUS VAC/PF 0.5 ML SYR (>=10YO) IM PRN (19:20)
[2020-02-27] MEDS ORDERED: MEASLES,MUMPS&RUBELLA VACC/PF 0.5 ML VIAL SUBCUT PRN (19:20)
[2020-02-27] MEDS ORDERED: PROMETHAZINE HCL 25 MG TABLET PO PRN (19:20)
[2020-02-27] MEDS ORDERED: DIBUCAINE 1% OINTMENT 28 GM TP PRN (19:20)
[2020-02-27] MEDS ORDERED: PROMETHAZINE HCL 25 MG SUPP.RECT PR PRN (19:20)
[2020-02-27] MEDS ORDERED: ACETAMINOPHEN WITH CODEINE #3 TABLET PO PRN (19:20)
[2020-02-27] MEDS ORDERED: ACETAMINOPHEN 650 MG SUPP.RECT PR PRN (19:20)
[2020-02-27] MEDS ORDERED: ACETAMINOPHEN 325 MG TABLET PO PRN (19:20)
[2020-02-27] MEDS ORDERED: OXYTOCIN/0.9 % SODIUM CHLORIDE 30 UNIT/500 ML RTUINJ IV PRN (19:20)
[2020-02-27] MEDS ORDERED: MAGNESIUM HYDROXIDE SUSP 30 ML UDCUP PO PRN (19:20)
[2020-02-27] MEDS ORDERED: ALPRAZOLAM PO PRN (19:22)
[2020-02-27] MEDS ORDERED: HYDROXYZINE PAMOATE 50 MG CAPSULE PO PRN (19:22)
[2020-02-27] MEDS ORDERED: ALPRAZOLAM 0.5 MG TABLET PO PRN (19:38)
[2020-02-27] MEDS ORDERED: IBUPROFEN 800 MG TABLET PO SCH (20:00)
[2020-02-27] MEDS ORDERED: VALACYCLOVIR HCL 500 MG TABLET PO SCH (20:00)
--- NOTE | 2020-02-27 21:19 | Delivery Summary ---
Del Sum A-C Datetime Report Generated by CPN: 02/27/2020 21:19 DELIVERY PERSONNEL DELIVERY PERSONNEL: [id number] Delivery Doctor:: Bernarda Marvin MD Labor and Delivery Nurse:: Sarah Carroll RNcook room supervisor Nurse:: Shantel Kulkarni RN Leather Stamper/ADMINISTRATIVE AND PROGRAM SPECIALIST: Theo Barros, ONCOLOGY SOCIAL WORK Leather Stamper/ADMINISTRATIVE AND PROGRAM SPECIALIST: Shiloh Allen, ONCOLOGY SOCIAL WORK MATERNAL INFORMATION Delivery Anesthesia: Epidural Medications After Delivery: Pitocin 30 Units in 500ml NS/D5W Estimated Blood Loss (ml): 150 Delivery QBL: 50 Maternal Complications: None Complication Details: true knot Provider Comments: Called to patients room as she was 9-10 cm and urge to push. Check patient and she was indeed 9-10 cm. AROM'd clear, large amount. Shortly after this she had the desire to push and pushed through two contractions delivering a viable female infant over an intact perineum. Nuchal x1 noted, loose and easily reduced. The shoulders and rest of the body delivered easily. There was a true knot noted in the cord as well. Infant vigorous at delivery and cord clamping was delayed for 30 seconds. Cord then clamped and cut. skin to skin with Mother. Both stable condition. No lacerations noted LABOR SUMMARY EDC: 03/13/2020 00:00 No. Babies in Womb: 1 Attempted: No Labor Anesthesia: Epidural LABOR INFORMATION Reason for Induction: Intrauterine Growth Retardation Onset of Labor: 02/27/2020 18:24 Complete Dilatation: 02/27/2020 19:08 Cervical Ripening Agents: Cervidil; Cytotec @ Oxytocin: Induction Group B Beta Strep: Negative Antibiotics # of Doses: 0 Name of Antibiotic Given: N/A Steroids Given: None Reason Steroids Not Administered: Not Applicable MEMBRANES Membranes Rupture Method: Artificial Rupture of Membranes: 02/27/2020 19:08 Length of Rupture (hr): 0.05 Amniotic Fluid Color: Clear Amniotic Fluid Amount: Moderate Amniotic Fluid Odor: Normal STAGES OF LABOR Stage 1 hr: 0 Stage 1 min: 44 Stage 2 hr: 0 Stage 2 min: 3 Stage 3 hr: 0 Stage 3 min: 3 Total Time in Labor hr: 0 Total Time in Labor min: 50 VAGINAL DELIVERY Episiotomy: None Laceration #1: None Laceration Extension #1: N/A Laceration Repair: Not Applicable Sponge Count Correct: N/A; Yes Sharps Count Correct: Yes CSECTION DELIVERY Primary Indication: N/A Secondary Indication: N/A CSection Incidence: N/A Labor: N/A Elective: N/A CSection Incision: N/A BABY A INFORMATION Infant Delivery Date/Time: 02/27/2020 19:11 Method of Delivery: Vaginal Nurse Controlled Delivery: No Born in Route : No : N/A Forceps: N/A Vacuum Extraction: N/A Shoulder Dystocia : No PRESENTATION/POSITION BABY A Presentation: Cephalic Cephalic Presentation: Vertex Vertex Position: Right Occipital Anterior Breech Presentation: N/A PLACENTA INFORMATION BABY A Placenta Delivery Time : 02/27/2020 19:14 Placenta Method of Delivery: Spontaneous Placenta Status: Delivered SCORES BABY A Heart Rate 1 min: >100 bpm Resp Effort 1 min: Good Cry Reflex Irritability 1 min: Cough or Sneeze or Pulls Away Muscle Tone 1 min: Active Motion Color 1 min: Body [place], Extremities Blue Resuscitation Effort 1 min: Tactile Stimulation SCORE 1 MIN: 9 Heart Rate 5 min: >100 bpm Resp Effort 5 min: Good Cry Reflex Irritability 5 min: Cough or Sneeze or Pulls Away Muscle Tone 5 min: Active Motion Color 5 min: Body [place], Extremities Blue SCORE 5 MIN: 9 INFANT INFORMATION BABY A Gestational Age at Delivery: 37.6 Gestational Status: Early Term- 37- 38.6 Weeks Outcome : Liveborn Condition : Stable Sex: Female IDENTIFICATION BABY A Infant Verification Date/Time: 02/27/2020 19:26 ID Band Number: [id number] Mother's Name Verified: Yes Infant RN Verifying Infant: D Carmenavance RN/K Glen RN WEIGHT/LENGTH BABY A Birthweight (gm): 2420 Infant Weight (lb): 5 Weight (oz): 5 Infant Length (in): 18.75 Infant Length (cm): 47.63 CORD INFORMATION BABY A No. Cord Vessels: 3 Nuchal Cord : Around Neck x1, Loose True Knot: 1 Cord Blood Taken: Yes-For Eval (Mom's Blood Type - or O+) Suction: Mouth; Nose ASSESSMENT BABY A Infant Complications: None Physical Findings at Delivery: Within Normal Limits Respirations: Appears Normal Skin to Skin: Yes Skin to Skin Time (min): 60 Industrial Technology Education Teacher/ALS Called : No Transferred To: Remains with Mother BABY B INFORMATION : N/A ASSESSMENT BABY B Skin to Skin: No SIGNATURES Signature: with User ID: Loco : with User ID: [email or web address]
--- NOTE | 2020-02-27 21:19 | Birth Certificate Data ---
Cert Data Datetime Report Generated by CPN: 02/27/2020 21:19 CERTIFICATE DATA 47a. Care: Yes (01/31/2020 11:32:Dann Paul RN) 47b. Date of First Visit: 09/05/2019 00:00 (01/31/2020 11:32:Dann Paul RN) 47c. Date of Last Visit: 02/24/2020 00:00 (01/31/2020 11:32:Dann Paul RN) 47d. Number of Visits: 12 (01/31/2020 11:32:Dann Paul RN) 48a. Number of Prev Live Births: 5 (01/31/2020 11:32:Dann Paul RN) 48b. Now Livin (01/31/2020 11:32:Bonita Christopher RN) 48c. Live Births Now : 0 (01/31/2020 11:32:QS system process) 48e. Losses: 2 (01/31/2020 11:32:Dann Paul RN) 48f. Date of Last Preg Loss: 01/09/2017 00:00 (01/31/2020 11:32:Dann Paul RN) RISK FACTORS IN THIS 49a. Diabetes: No (01/31/2020 11:32:Dann Paul RN) 49b. Hypertension: No (01/31/2020 11:32:Shantel Kulkarni RN) 49c. Previous Births: 0 (01/31/2020 11:32:Bonita Christopher RN) 49d. Stillborns: No (01/31/2020 11:32:Dann Paul RN) 49d. IUGR: Yes (01/31/2020 11:32:Dann Paul RN) 49e. Infertility Treatment: No (01/31/2020 11:32:Dann Paul RN) 49f. Previous Cesareans: 0 (01/31/2020 11:32:Dann Paul RN) Mother's Height 50b. Height Inches: 63 (02/27/2020 14:45:QS system process) Mother's Weight 51a. Pre- Weight (lbs): 121 (01/31/2020 11:32:Dann Paul RN) 51b. Weight at Delivery (lbs): 141 (02/27/2020 14:45:QS system process) Infections Present/Treated 53a. Gonorrhea: No (01/31/2020 11:32:Dann Paul RN) Results this Hospital Visit : Negative (01/31/2020 11:32:Dann Paul RN) 53b. Syphilis: No (01/31/2020 11:32:Dann Paul RN) Results this Hospital Visit: NONREACTIVE (02/26/2020 18:47:QS system process) 53c. Chlamydia: No (01/31/2020 11:32:Dann Paul RN) Results this Hospital Visit: Negative (01/31/2020 11:32:Dann Paul RN) 53d. Hepatitis B: No (01/31/2020 11:32:Dann Paul RN) Results this Hospital Visit: Negative (01/31/2020 11:32:Dann Paul RN) 53e. Hepatitis C: Negative (01/31/2020 11:32:Dann Paul RN) 53h. Mother Tested for HBsAG: Yes (01/31/2020 11:32:Dann Paul RN) 53i. Date Tested: 09/05/2019 00:00 (01/31/2020 11:32:Dann Paul RN) 53j. Test Result: Negative (01/31/2020 11:32:Dann Paul RN) Obstetric Procedures 54a, b, c. Obstetric Procedures: Ultrasound; NST (01/31/2020 11:32:Dann Paul RN) Cigarette Smoking Cigarette Smoking: Current Everyday Smoker. [id number] (01/31/2020 11:32:Dann Paul RN) 55a. 3 Months Before Preg - Ci (01/31/2020 11:32:Dann Paul RN) 55a. Packs: 1/2 (01/31/2020 11:32:Dann Paul RN) 55b. 1st Trimester of Preg- Ci (01/31/2020 11:32:Dann Paul RN) 55b. Packs: 1/2 (01/31/2020 11:32:Dann Paul RN) 55c. 2nd Trimester of Preg- Ci (01/31/2020 11:32:Dann Paul RN) 55c. Packs: 1/2 (01/31/2020 11:32:Dann Paul RN) 55d. 3rd Trimester of Preg- Ci (01/31/2020 11:32:Dann Paul RN) 55d. Packs: 1/2 (01/31/2020 11:32:Dann Paul RN) Onset of Labor 56a. PROM >12 Hrs: 0.05 (01/31/2020 11:32:QS system process) 56b. Precipitous Labor <3 Hrs: 0 (01/31/2020 11:32:QS system process) 56c. Prolonged Labor > 20 Hrs: 0 (01/31/2020 11:32:QS system process) 57a. Induction of Labor: Induction (01/31/2020 11:32:Shantel Kulkarni RN) 57a. Induction of Labor: Cervidil; Cytotec @ (02/27/2020 09:22:Shantel Kulkarni RN) 57c. Non-Vertex Presentation A: Vertex (01/31/2020 11:32:Shantel Kulkarni RN) 57d. Steroids - Lung Mat: None (01/31/2020 11:32:Shantel Kulkarni RN) 57d. Steroids - Lung Mat: Not Applicable (01/31/2020 11:32:Shantel Kulkarni RN) 57f. Mat [place] or Temp >100.4: 98.4 (01/31/2020 11:32:Shantel Kulkarni RN) 57g. Moderate/Heavy Meconium: Clear (02/27/2020 19:08:Sarah Carroll RN) 57h. Intolerance of Labor: N/A (01/31/2020 11:32:Shantel Kulkarni RN) : N/A (01/31/2020 11:32:Sarah Carroll RN) 57i. Epidural/Spinal Anesthesia: Epidural (01/31/2020 11:32:Shantel Kulkarni RN) Method of Delivery 58a. Forceps - Unsuccessful A: N/A (01/31/2020 11:32:Shantel Kulkarni RN) 58b. Vacuum - Unsuccessful A: N/A (01/31/2020 11:32:Shantel Kulkarni RN) 58c. Presentation at 58c. Presentation at - A : Vertex (01/31/2020 11:32:Shantel KulkarniJENNIFER) 58c. Presentation at - A : N/A (01/31/2020 11:32:Shantel Margydenys Kulkarni RN) 58c. Presentation at - A : Cephalic (01/31/2020 11:32:Shantel Barfielddenys Kulkarni RN) Final Route and Method of Del 58d. Baby A Route/Delivery: Vaginal (01/31/2020 11:32:Shantel Kulkarni RN) 58e. Trial of Labor Attempted: No (01/31/2020 11:32:Shantel Kulkarni RN) 58e. Trial of Labor Attempted A: N/A (01/31/2020 11:32:Shantel Kulkarni RN) 58e. Trial of Labor Attempted B: N/A (01/31/2020 11:32:Shantel Kulkarni RN) Maternal Morbidity 59b. 3rd or 4th Degree Lacs: None (01/31/2020 11:32:Shantel Kulkarni RN) Birthweight Baby A: 2420 (01/31/2020 11:32:Sarah Carroll RN) 60a. Pounds : 5 (01/31/2020 11:32:QS system process) 60b. Ounces: 5 (01/31/2020 11:32:QS system process) 61. GA at Delivery Baby A: 37.6 (01/31/2020 11:32:Shantel Kulkarni RN) : Early Term- 37- 38.6 Weeks (01/31/2020 11:32:QS system process) 62a. 5 Minute Baby A: 9 (01/31/2020 11:32:QS system process)
[2020-02-27] MEDS ORDERED: IBUPROFEN 800 MG TABLET ONE (21:27)
[2020-02-27] MEDS ORDERED: VALACYCLOVIR HCL 500 MG TABLET PO ONE (23:00)
[2020-02-27] MEDS: FAMOTIDINE 20 MG TABLET PO SCH (23:16)
[2020-02-28] MEDS: ACETAMINOPHEN WITH CODEINE #3 TABLET PO PRN ×3 (04:48→17:57)
[2020-02-28] MEDS: IBUPROFEN 800 MG TABLET PO SCH ×3 (05:55→21:05)
[2020-02-28] MEDS ORDERED: INFLUENZA QUAD (6MOS+) 2020-21 VAC 0.5 ML SYR IM ONE (07:15)
[2020-02-28 07:39] LABS: HEMATOCRIT 27.6 % (36.0-47.0); HEMOGLOBIN 9.6 g/dL (12.0-15.5); MEAN CORPUSCULAR HEMOGLOBIN 34.3 pg (27.0-33.4); MEAN CORPUSCULAR VOLUME 98 fl (80-97); PLATELET COUNT 216 10^3/uL (150-450); RED BLOOD COUNT 2.81 10^6/uL (3.72-5.28); RED CELL DISTRIBUTION WIDTH 14.9 % (11.5-14.0); WHITE BLOOD COUNT 13.4 10^3/uL (4.0-10.5)
[2020-02-28] MEDS ORDERED: (PENDING PHARMACY ID) (Budesonide/Formoterol Fumarate 1 PUFF) IH SCH (10:00)
[2020-02-28] MEDS: BUSPIRONE HCL 10 MG TABLET PO SCH ×3 (10:00→18:00)
[2020-02-28] MEDS: FLUTICASONE/VILANTEROL 100-25 MCG/DOSE IH SCH (10:00)
--- NOTE | 2020-02-28 10:22 | PDOC PROGRESS REPORT ---
Subjective-OB Progress Note for:: 02/28/20 Subjective: Doing well, no c/o, bottle feeding, needs to wear bra, eating and voiding, holding baby Physical Exam (OB) Vital Signs: Temp Pulse Resp BP Pulse Ox 97.8 F 56 L 17 122/77 100 02/28/20 07:29 02/28/20 07:29 02/28/20 07:29 02/28/20 07:29 02/28/20 07:29 Intake & Output 02/27/20 02/28/20 02/29/20 06:59 06:59 06:59 Intake Total 1000 112 150 Balance 1000 112 150 Weight 63.5 kg - PIH/Pre-Eclampsia DTR's: 2 + Clonus: Negative Headache: Absent Epigastric Pain: No Visual Changes: No - Maternal Morbidity 59. Maternal Morbidity (serious complications experinced by the mother associated with labor and delivery: None of the above - Lochia Lochia Amount: Scant < 10 ml Lochia Color: Rubra/Red - Abdomen Description: Soft Hernia Present: No Fundal Description: Firm, Midline Fundal Height: u/u - u/2 Objective-Diagnostic Laboratory: 02/28/20 06:51 02/28/20 06:51 WBC 13.4 H RBC 2.81 L Hgb 9.6 L Hct 27.6 L MCV 98 H MCH 34.3 H MCHC 35.0 RDW 14.9 H Plt Count 216 Assessment and Plan(PN) - Assessment and Plan (1) IUGR (intrauterine growth restriction) Is this a current diagnosis for this admission?: Yes (2) Encounter for induction of labor Is this a current diagnosis for this admission?: Yes (3) Depression Qualifiers: Major depression episode severity: unspecified Is this a current diagnosis for this admission?: Yes (4) Anxiety Is this a current diagnosis for this admission?: Yes (5) Normal vaginal delivery Is this a current diagnosis for this admission?: Yes - Time Spent with Patient Time with patient: Less than 15 minutes Medications reviewed and adjusted accordingly: Yes - Disposition Anticipated Discharge Disposition: Home, Self Care Anticipated Discharge Timeframe: within 24 hours
[2020-02-28] MEDS: DOCUSATE SODIUM 100 MG CAPSULE PO SCH ×2 (10:44→18:04)
[2020-02-28] MEDS: SENNOSIDES/DOCUSATE 8.6-50 MG 1 EACH TABLET PO SCH (10:44)
[2020-02-28] MEDS: FAMOTIDINE 20 MG TABLET PO SCH ×2 (10:49→21:06)
[2020-02-28] MEDS: FERROUS SULFATE 325 MG TABLET PO SCH ×2 (10:49→18:00)
[2020-02-28] MEDS: PRENATAL VITAMIN W DHA CAPSULE PO SCH (10:49)
[2020-02-28] MEDS: VALACYCLOVIR HCL 500 MG TABLET PO SCH ×2 (10:50→21:06)
[2020-02-29] MEDS: ACETAMINOPHEN WITH CODEINE #3 TABLET PO PRN ×3 (02:20→10:48)
[2020-02-29] MEDS: IBUPROFEN 800 MG TABLET PO SCH (05:13)
[2020-02-29 08:02] VITALS: BP 121/72
[2020-02-29] MEDS: DOCUSATE SODIUM 100 MG CAPSULE PO SCH (09:34)
[2020-02-29] MEDS: BUSPIRONE HCL 10 MG TABLET PO SCH (09:49)
[2020-02-29] MEDS: FERROUS SULFATE 325 MG TABLET PO SCH (09:49)
[2020-02-29] MEDS: FAMOTIDINE 20 MG TABLET PO SCH (09:49)
[2020-02-29] MEDS: PRENATAL VITAMIN W DHA CAPSULE PO SCH (09:49)
[2020-02-29] MEDS: SENNOSIDES/DOCUSATE 8.6-50 MG 1 EACH TABLET PO SCH (09:49)
[2020-02-29] MEDS: FLUTICASONE/VILANTEROL 100-25 MCG/DOSE IH SCH (09:49)
[2020-02-29] MEDS: VALACYCLOVIR HCL 500 MG TABLET PO SCH (09:50)
--- NOTE | 2020-02-29 11:49 | PDOC DISCHARGE SUMMARY ---
Impression - Admit/DC Date/PCP Admission Date/Primary Care Provider: 02/26/20 17:58 Discharge Date: 02/29/20 - Discharge Diagnosis (1) Anemia complicating , third trimester Is this a current diagnosis for this admission?: Yes (2) Depression Is this a current diagnosis for this admission?: Yes (3) Encounter for induction of labor Is this a current diagnosis for this admission?: Yes (4) IUGR (intrauterine growth restriction) Is this a current diagnosis for this admission?: Yes (5) Normal vaginal delivery Is this a current diagnosis for this admission?: Yes (6) Anxiety Is this a current diagnosis for this admission?: Yes - Assessment Summary: 34yo s/p ppd2 stable and ready for discharge. Denies all s/s of pre-e, understands warning s/s and when to rtc/[facility]. - Additional Information Resuscitation Status: Full Code Discharge Diet: As Tolerated, Regular Discharge Activity: Activity As Tolerated, Balance Activity w/Rest, No Lifting Over 10 Pounds, Pelvic Rest, No tub bath, Walk Frequently Prescriptions: Ibuprofen [Motrin 800 mg Tablet] 800 mg PO Q8HP PRN #20 tablet PRN Reason: Abdominal Cramping Docusate Sodium [Colace 100 mg Capsule] 100 mg PO BID #60 capsule Ferrous Sulfate [Feosol 325 mg Tablet] 325 mg PO BID #60 tablet Home Medications: Alprazolam [Xanax] 0.5 tab PO DAILYP PRN 12/22/16 Hydroxyzine Pamoate [Vistaril 50 mg Capsule] 50 mg PO HSP PRN 03/14/18 No.52/Iron/FA/Dha [[employer]-Pnv-Dha Softgel] 1 each PO DAILY 03/15/18 Buspirone HCl [Buspar 10 mg Tablet] 15 mg PO TID 01/31/20 Albuterol Sulfate [Albuterol Sulfate Hfa] 8.5 gm IH PRN PRN 02/26/20 Budesonide/Formoterol Fumarate [Symbicort HFA 80-4.5 mcg Inhaler 6.9 gm] 1 puff IH DAILY 02/26/20 Valacyclovir HCl [Valtrex 500 mg Tablet] 500 mg PO BID 02/26/20 Docusate Sodium [Colace 100 mg Capsule] 100 mg PO BID #60 capsule 02/29/20 Ferrous Sulfate [Feosol 325 mg Tablet] 325 mg PO BID #60 tablet 02/29/20 Ibuprofen [Motrin 800 mg Tablet] 800 mg PO Q8HP PRN #20 tablet 02/29/20 Hospital Course 59. Maternal Morbidity (serious complications experinced by the mother associated with labor and delivery: None of the above Results Laboratory Results: WBC 13.4 10^3/uL (4.0-10.5) H 02/28/20 06:51 RBC 2.81 10^6/uL (3.72-5.28) L 02/28/20 06:51 Hgb 9.6 g/dL (12.0-15.5) L 02/28/20 06:51 Hct 27.6 % (36.0-47.0) L 02/28/20 06:51 MCV 98 fl (80-97) H 02/28/20 06:51 MCH 34.3 pg (27.0-33.4) H 02/28/20 06:51 MCHC 35.0 g/dL (32.0-36.0) 02/28/20 06:51 RDW 14.9 % (11.5-14.0) H 02/28/20 06:51 Plt Count 216 10^3/uL (150-450) 02/28/20 06:51 Lymph % (Auto) 20.5 % (13-45) 02/26/20 18:47 Sharp % (Auto) 6.5 % (3-13) 02/26/20 18:47 Eos % (Auto) 0.6 % (0-6) 02/26/20 18:47 Baso % (Auto) 0.5 % (0-2) 02/26/20 18:47 Absolute Neuts (auto) 9.0 10^3/uL (1.7-8.2) H 02/26/20 18:47 Absolute Lymphs (auto) 2.6 10^3/uL (0.5-4.7) 02/26/20 18:47 Absolute Monos (auto) 0.8 10^3/uL (0.1-1.4) 02/26/20 18:47 Absolute Eos (auto) 0.1 10^3/uL (0.0-0.6) 02/26/20 18:47 Absolute Basos (auto) 0.1 10^3/uL (0.0-0.2) 02/26/20 18:47 Seg Neutrophils % 71.9 % (42-78) 02/26/20 18:47 Urine Color YELLOW 02/26/20 18:19 Urine Appearance SLIGHTLY-CLOUDY 02/26/20 18:19 Urine pH 7.0 (5.0-9.0) 02/26/20 18:19 Ur Specific Globe 1.011 02/26/20 18:19 Urine Protein NEGATIVE mg/dL (NEGATIVE) 02/26/20 18:19 Urine Glucose (UA) NEGATIVE mg/dL (NEGATIVE) 02/26/20 18:19 Urine Ketones NEGATIVE mg/dL (NEGATIVE) 02/26/20 18:19 Urine Blood NEGATIVE (NEGATIVE) 02/26/20 18:19 Urine Nitrite NEGATIVE (NEGATIVE) 02/26/20 18:19 Urine Bilirubin NEGATIVE (NEGATIVE) 02/26/20 18:19 Urine Urobilinogen NEGATIVE mg/dL (<2.0) 02/26/20 18:19 Ur Leukocyte Esterase NEGATIVE (NEGATIVE) 02/26/20 18:19 Urine Ascorbic Acid NEGATIVE (NEGATIVE) 02/26/20 18:19 Urine Opiates Screen NEGATIVE 02/26/20 18:19 Urine Methadone Screen NEGATIVE 02/26/20 18:19 Ur Barbiturates Screen NEGATIVE 02/26/20 18:19 Ur Phencyclidine Scrn NEGATIVE 02/26/20 18:19 Ur Amphetamines Screen NEGATIVE 02/26/20 18:19 U Benzodiazepines Scrn UNCONFIRMED POSITIVE 02/26/20 18:19 Urine Cocaine Screen NEGATIVE 02/26/20 18:19 U Marijuana (THC) Screen NEGATIVE 02/26/20 18:19 RPR NONREACTIVE (NONREACTIVE) 02/26/20 18:47 Blood Type O POSITIVE 02/26/20 18:47 Antibody Screen NEGATIVE 02/26/20 18:47
== END 2020-02-29 12:10 | disposition home or self-care (01) | DRG 806 ==
LOC: LR 17:58 → 2S 02-27 21:35
PROVIDERS: ADMIT Obstetrics & Gynecology; ATTEND Obstetrics & Gynecology
PROC: 10E0XZZ Delivery of Products of Conception, External Approach (ICD-10-PCS; principal; 2020-02-27)
DX: O36.5930 Maternal care for other known or suspected poor fetal growth, third trimester, not applicable or unspecified (principal); O98.32 Other infections with a predominantly sexual mode of transmission complicating childbirth; Z37.0 Single live birth; O99.334 Smoking (tobacco) complicating childbirth; O69.81X0 Labor and delivery complicated by cord around neck, without compression, not applicable or unspecified; F17.210 Nicotine dependence, cigarettes, uncomplicated; O99.52 Diseases of the respiratory system complicating childbirth; O99.02 Anemia complicating childbirth; D64.9 Anemia, unspecified; F41.9 Anxiety disorder, unspecified; J45.909 Unspecified asthma, uncomplicated; O69.2XX0 Labor and delivery complicated by other cord entanglement, with compression, not applicable or unspecified; A60.00 Herpesviral infection of urogenital system, unspecified; O99.344 Other mental disorders complicating childbirth; F32.9 Major depressive disorder, single episode, unspecified; Z3A.37 37 weeks gestation of pregnancy; Z79.899 Other long term (current) drug therapy
CPT/HCPCS: 1967; 36415; 80307; 81005; 85025; 85027; 86592; 86850; 86900; 86901; 88307; 94760; J2590; J2795; J3010; J3490